=== PATIENT | female | born 1990 | race Caucasian/White ===

== ENCOUNTER 2016-08-10 06:34 | Day surgery (SDC) | payer BC, OTHER ==
[2016-08-10] MEDS ORDERED: Lactated Ringers 1,000 ML IV SCH (06:45)
--- NOTE | 2016-08-10 07:09 | PCM.PREANE ---
Preanesthetic Assessment - Anesthesia/Transfusion/Family Hx Anesthesia History: No Prior Anesthesia Family History of Anesthesia Reaction: No Transfusion History: No Prior Transfusion(s) Intubation History: Unknown - Review of Systems General: No Symptoms Pulmonary: No Symptoms Cardiovascular: No Symptoms Gastrointestinal: No symptoms Neurological: No Symptoms Other: Reports: None - Physical Assessment O2 Sat by Pulse Oximetry: 99 Respiratory Rate: 16 Vital Signs: Last Vital Signs Temp 36.7 C 08/10/16 06:56 Pulse 74 08/10/16 06:56 Resp 16 08/10/16 06:56 BP 110/73 08/10/16 06:56 Pulse Ox 99 08/10/16 06:56 Height: 1.64 m Weight: 63.503 kg ASA Class: 2 Mental Status: Alert & Oriented x3 Airway Class: Mallampati = 2 Dentition: Reports: Normal Dentition Thyro-Mental Finger Breadths: 3 Mouth Opening Finger Breadths: 3 ROM/Head Extension: Full Lungs: Clear to auscultation, Normal respiratory effort Cardiovascular: Regular Rate, Regular Rhythm - Allergies Allergies/Adverse Reactions: Allergies Allergy/AdvReac Type Severity Reaction Status Date / Time No Known Allergies Allergy Verified 03/25/16 10:28 - Blood Blood Available: No - Anesthesia Plan Pre-Op Medication Ordered: None - Acknowledgements Anesthesia Type Planned: General Anesthesia Pt an Appropriate Candidate for the Planned Anesthesia: Yes Alternatives and Risks of Anesthesia Discussed w Pt/Guardian: Yes Pt/Guardian Understands and Agrees with Anesthesia Plan: Yes PreAnesthesia Questionnaire HEENT History: Reports: Allergic rhinitis Cardiovascular History: Reports: None Respiratory History: Reports: None Gastrointestinal History: Reports: Other (see below) (History of Ulcerative Colitis-no episodes for "14 years") Genitourinary History: Reports: Other (see below) Other Genitourinary History: hx colitis [facility] History: Reports: (9 week intrauterine demise) Musculoskeletal History: Reports: None Neurological History: Reports: Other (see below) (complains of a headache today. ) Psychiatric History: Reports: Depression (The patient is upset and crying during the preoperative evaluation.) Endocrine/Metabolic History: Reports: None Hematologic History: Reports: None - Past Surgical History Head Surgeries/Procedures: Reports: None HEENT Surgical History: Reports: Oral surgery ("asleep for her dental extractions") Female Surgical History: Reports: D&C - History Comment History Comment: denies etoh - SUBSTANCE USE Smoking Status *Q: Never Smoker Recreational Drug Use History: No - HOME MEDS Home Medications: Home Meds Escitalopram [Lexapro] 10 mg PO DAILY 03/25/16 [History] PNV95/Ferrous Fumarate/FA [ Vitamins Tablet] 1 tab PO DAILY 03/25/16 [ History] - CURRENT (IN HOUSE) MEDS Current Meds: Current Medications Lactated Ringer's (Ringers, Lactated) 1,000 mls @ 125 mls/hr IV ASDIRECTED [facility] Last Admin: 08/10/16 07:02 Dose: 125 mls/hr
[2016-08-10] MEDS ORDERED: Propofol 200 MG/20 ML SDV ONE (07:41)
[2016-08-10] MEDS ORDERED: Lidocaine 2% 5 ML SDV ONE (07:41)
[2016-08-10] MEDS ORDERED: fentaNYL 100 MCG/2 ML SDV ONE (07:41)
[2016-08-10] MEDS ORDERED: Midazolam 1 MG/ML 2 ML SDV ONE (07:41)
[2016-08-10] MEDS ORDERED: Ondansetron 4 MG/2 ML SDV ONE (08:17)
[2016-08-10] MEDS ORDERED: Ketorolac 30 MG/ML SDV ONE (08:17)
--- NOTE | 2016-08-10 08:32 | PCM.OPNOTE ---
- General Post-Op/Procedure Note Date of Surgery/Procedure: 08/10/16 Operative Procedure(s): Suction D&C Pre Op Diagnosis: Missed Post-Op Diagnosis: Same Anesthesia Technique: General LMA Primary Surgeon: Dominique Gray Pathology: POC with karyotyping requested Fluid Replacement, Intraop: 800 EBL in mLs: 200 Condition: Good Free Text/Narrative:: Dictation [id number]
[2016-08-10] MEDS ORDERED: fentaNYL 100 MCG/2 ML SDV IVPUSH PRN (08:38)
[2016-08-10 10:55] VITALS: BP 90/60
--- NOTE | 2016-08-10 16:38 | OR ---
SURGEON: Dominique Gray M.D. DATE OF PROCEDURE: 08/10/2016 PREOPERATIVE DIAGNOSIS: Missed . POSTOPERATIVE DIAGNOSIS: Missed . PROCEDURE: Suction dilation and curettage. ESTIMATED BLOOD LOSS: 200 mL. FLUIDS: 800 mL of crystalloid. COMPLICATIONS: None. FINDINGS: Products of conception. DISPOSITION: The patient to PACU, stable. SPECIMENS: Pathology. PROCEDURE IN DETAIL: Kaylah is a 26-year-old G2, P 0-0-1-0, who was seen last week for her new OB evaluation and ultrasound revealed an approximately five-to six-week gestational sac with no embryo formation, yolk sac was noted; therefore she was followed closely with serial quantitative hCGs, which are falling. This is consistent with an early missed . Options have been discussed with Kaylah and she would like to proceed with a suction D and C. After risks of the procedure have been discussed and proper consent obtained, the patient was taken to the operating room. She underwent general LMA, was placed in modified dorsal lithotomy position, prepped and draped in the usual sterile fashion. SCDs lower extremities. Bladder was drained. A time-out was performed. Speculum was introduced into the vagina. Anterior lip of cervix was grasped with an Allis clamp. Cervix was gently dilated to 8 mm using an 8 mm curved curette. This was introduced in the uterine cavity. Under suction of the uterine cavity, it was cleared of all products of conception and palpated. Gentle curettage was now performed. The suction curette was once again introduced and remainder of tissue was now retrieved. Hemostasis appears evident. All instruments were removed from the vagina. The patient had tolerated the procedure well. Specimen forwarded to pathology. The patient is requesting the karyotyping of the tissue if able. Pathology has been notified. The patient to PACU in stable condition. LEONARD / MAYELA /[id number]
== END 2016-08-10 10:35 | disposition home or self-care (01) ==
LOC: MW.SDS 06:34
PROVIDERS: ATTEND Obstetrics & Gynecology
DX: O02.1 Missed abortion (principal); K51.90 Ulcerative colitis, unspecified, without complications; F32.9 Major depressive disorder, single episode, unspecified; Z98.890 Other specified postprocedural states; Z79.899 Other long term (current) drug therapy
CPT/HCPCS: 36415; 59820; 85027; 88233; J1885; J2250; J2405; J3010; J7120; 01965; 88305; J2704

== ENCOUNTER 2017-09-12 17:46 | Inpatient (IN) | payer BC, OTHER ==
[2017-09-12] MEDS ORDERED: Carboprost Tromethamine 250 MCG/1 ML Amp IM PRN (17:58)
[2017-09-12] MEDS ORDERED: Water For Irrigation,Sterile 1,000 ML Container IRR PRN (17:58)
[2017-09-12] MEDS ORDERED: Tranexamic Acid 1,000 MG in Sodium Chloride 0.9% 100 ML IV PRN (17:58)
[2017-09-12] MEDS ORDERED: Misoprostol 200 MCG Tab PO PRN (17:58)
[2017-09-12] MEDS ORDERED: Lidocaine 1% 50 ML MDV INJECT PRN (17:58)
[2017-09-12] MEDS ORDERED: Sodium Chloride 0.9% 10 ML Syringe FLUSH PRN (17:58)
[2017-09-12] MEDS ORDERED: Nalbuphine 10 MG/1 ML Vial IVPUSH PRN (17:58)
[2017-09-12] MEDS ORDERED: Butorphanol 1 MG/ML SDV IVPUSH PRN (17:58)
[2017-09-12] MEDS ORDERED: Sodium Chloride 0.9% 2.5 ML Syringe FLUSH PRN (17:58)
[2017-09-12] MEDS ORDERED: Methylergonovine 0.2 MG/1 ML Amp IM PRN (17:58)
[2017-09-12] MEDS ORDERED: Terbutaline 1 MG/ML SDV SUBCUT PRN (17:59)
[2017-09-12] MEDS ORDERED: Misoprostol 25 MCG (1/4 of 100 MCG) Tab VAG PRN (17:59)
[2017-09-12] MEDS ORDERED: Oxytocin/0.9 % Sodium Chloride 30 UNIT/500 ML BAG IV SCH (18:00)
[2017-09-12] MEDS ORDERED: Misoprostol 25 MCG (1/4 of 100 MCG) Tab VAG SCH (18:00)
[2017-09-12] MEDS ORDERED: Ampicillin 2 GM in Sodium Chloride 0.9% 100 ML IV ONE (18:26)
[2017-09-12] MEDS: Lactated Ringers 1,000 ML IV SCH (19:39)
[2017-09-12] MEDS ORDERED: Ampicillin 1 GM in Sodium Chloride 0.9% 50 ML IV SCH (20:45)
[2017-09-12] MEDS: Ampicillin 1 GM in Sodium Chloride 0.9% 50 ML IV SCH (23:37)
[2017-09-13] MEDS ORDERED: diphenhydrAMINE 25 MG Cap PO ONE (00:12)
[2017-09-13] MEDS ORDERED: Ondansetron 4 MG/2 ML SDV IVPUSH ONE (03:07)
[2017-09-13] MEDS: Butorphanol 1 MG/ML SDV IVPUSH PRN ×2 (03:14→07:00)
[2017-09-13] MEDS: Ampicillin 1 GM in Sodium Chloride 0.9% 50 ML IV SCH ×6 (03:44→23:35)
[2017-09-13] MEDS: Dextrose 5%-0.9% NaCl 1,000 ML IV SCH ×3 (04:20→23:52)
[2017-09-13] MEDS: Lactated Ringers 1,000 ML IV SCH ×3 (08:55→18:25)
[2017-09-13] MEDS ORDERED: Ropivacaine 0.2% 2 MG/ML 20 ML SDV ONE (09:11)
--- NOTE | 2017-09-13 09:45 | PCM.PREANE ---
Preanesthetic Assessment - Procedure Proposed Procedure: labor epidural- has gestational DM - Anesthesia/Transfusion/Family Hx Anesthesia History: Prior Anesthesia Without Reaction Family History of Anesthesia Reaction: No Transfusion History: No Prior Transfusion(s) Intubation History: Unknown - Review of Systems Other: Reports: None - Physical Assessment Height: 5 ft 4 in Weight: 78.018 kg ASA Class: 2 Mental Status: Alert & Oriented x3 Airway Class: Mallampati = 1 Dentition: Reports: Normal Dentition ROM/Head Extension: Full - Lab Values: Laboratory Last Values WBC 9.51 K/uL (4.0-11.0) 09/12/17 18:17 RBC 4.56 M/uL (4.30-5.90) 09/12/17 18:17 Hgb 13.4 g/dL (12.0-16.0) 09/12/17 18:17 Hct 38.8 % (36.0-46.0) 09/12/17 18:17 MCV 85.1 fL (80.0-98.0) 09/12/17 18:17 MCH 29.4 pg (27.0-32.0) 09/12/17 18:17 MCHC 34.5 g/dL (31.0-37.0) 09/12/17 18:17 RDW Std Deviation 44.7 fl (28.0-62.0) 09/12/17 18:17 RDW Coeff of Ethel 15 % (11.0-15.0) 09/12/17 18:17 Plt Count 146 K/uL (150-400) L 09/12/17 18:17 MPV 10.40 fL (7.40-12.00) 09/12/17 18:17 Nucleated RBC % 0.0 /100WBC 09/12/17 18:17 Nucleated RBCs # 0 K/uL 09/12/17 18:17 POC Glucose 70 mg/dL (60-110) 09/13/17 09:34 Blood Type O POSITIVE 09/12/17 18:17 Antibody Screen NEGATIVE 09/12/17 18:17 - Allergies Allergies/Adverse Reactions: Allergies Allergy/AdvReac Type Severity Reaction Status Date / Time No Known Allergies Allergy Verified 03/25/16 10:28 - Blood Blood Available: Yes Product(s) Available: PRBC - Acknowledgements Anesthesia Type Planned: Epidural Pt an Appropriate Candidate for the Planned Anesthesia: Yes Alternatives and Risks of Anesthesia Discussed w Pt/Guardian: Yes Pt/Guardian Understands and Agrees with Anesthesia Plan: Yes PreAnesthesia Questionnaire HEENT History: Reports: Allergic Rhinitis Cardiovascular History: Reports: None Respiratory History: Reports: None Gastrointestinal History: Reports: Other (See Below) Other Gastrointestinal History: heartburn with and ulcerative colitis Genitourinary History: Reports: None Other Genitourinary History: hx colitis NURSES EDUCATOR History: Reports: , Spontaneous Musculoskeletal History: Reports: None Neurological History: Reports: None Psychiatric History: Reports: Anxiety Endocrine/Metabolic History: Reports: Diabetes, Gestational Hematologic History: Reports: None Oncologic (Cancer) History: Reports: None Dermatologic History: Reports: None - Infectious Disease History Infectious Disease History: Reports: Chicken Pox, Influenza - Past Surgical History Head Surgeries/Procedures: Reports: None HEENT Surgical History: Reports: Oral Surgery, Other (See Below) Other HEENT Surgeries/Procedures: wisdom teeth extraction GI Surgical History: Reports: None Female Surgical History: Reports: D&C - History Comment History Comment: denies etoh - SUBSTANCE USE Smoking Status *Q: Never Smoker Second Hand Smoke Exposure: No Recreational Drug Use History: No - HOME MEDS Home Medications: Home Meds Escitalopram [Lexapro] 10 mg PO DAILY 03/25/16 [History] PNV95/Ferrous Fumarate/FA [ Vitamins Tablet] 1 tab PO DAILY 03/25/16 [ History] - CURRENT (IN HOUSE) MEDS Current Meds: Current Medications Butorphanol Tartrate (Stadol) 1 mg IVPUSH Q1H PRN PRN Reason: Abdominal Pain Last Admin: 09/13/17 07:00 Dose: 1 mg Carboprost Tromethamine (Hemabate Ds) 250 mcg IM ASDIRECTED PRN PRN Reason: Post Hemorrhage Lactated Ringer's (Ringers, Lactated) 1,000 mls @ 150 mls/hr IV ASDIRECTED [facility] Last Admin: 09/13/17 08:55 Dose: 999 mls/hr Tranexamic Acid 1,000 mg/ (Sodium Chloride) 110 mls @ 660 mls/hr IV ONETIME PRN PRN Reason: Bleeding Oxytocin/Sodium Chloride (Oxytocin 30 Unit/500 Ml-Ns) 30 unit in 500 mls @ 2 mls/hr IV TITRATE MILIND; Protocol Last Admin: 09/13/17 09:40 Dose: 2 munits/min, 2 mls/hr Ampicillin Sodium 1 gm/ Sodium (Chloride) 50 mls @ 100 mls/hr IV Q4H [facility] Last Admin: 09/13/17 07:10 Dose: 100 mls/hr Insulin Human Regular 100 unit (/ Sodium Chloride) 100 mls @ 0.5 mls/hr IV TITRATE MILIND; Protocol Dextrose/Sodium Chloride (Dextrose 5%-Normal Saline) 1,000 mls @ 100 mls/hr IV ASDIRECTED [facility] Last Admin: 09/13/17 04:20 Dose: 100 mls/hr Lidocaine HCl (Xylocaine 1%) 50 ml INJECT .ONCE PRN PRN Reason: Laceration repair Methylergonovine Maleate (Methergine) 0.2 mg IM ASDIRECTED PRN PRN Reason: Post Hemorrhage Misoprostol (Cytotec) 200 mcg PO .ONCE PRN PRN Reason: Post Hemorrhage Misoprostol (Cytotec) 25 mcg VAG .ONCE [facility] Last Admin: 09/12/17 18:31 Dose: 25 mcg Misoprostol (Cytotec) 25 mcg VAG Q4H PRN PRN Reason: Cervical Ripening Last Admin: 09/12/17 22:43 Dose: 25 mcg Sodium Chloride (Saline Flush) 10 ml FLUSH ASDIRECTED PRN PRN Reason: Keep Vein Open Sodium Chloride (Saline Flush) 2.5 ml FLUSH ASDIRECTED PRN PRN Reason: Keep Vein Open Sterile Water (Sterile Water For Irrigation) 1,000 ml IRR ASDIRECTED PRN PRN Reason: delivery Terbutaline Sulfate (Brethine) 0.25 mg SUBCUT ASDIRECTED PRN PRN Reason: Tacysystole Discontinued Medications Diphenhydramine HCl (Benadryl) 25 mg PO ONETIME ONE Stop: 09/13/17 00:13 Last Admin: 09/13/17 01:52 Dose: 25 mg Ampicillin Sodium 2 gm/ Sodium (Chloride) 100 mls @ 200 mls/hr IV ONETIME ONE Stop: 09/12/17 18:55 Last Admin: 09/12/17 19:40 Dose: 200 mls/hr Fentanyl/Bupivacaine HCl (Xalorelw-Tayce-Vl 2 Mcg/Ml-0.125%) Confirm Administered Dose 100 mls @ as directed EP .STK-MED ONE Stop: 09/13/17 09:12 Ondansetron HCl (Zofran) 4 mg IVPUSH ONETIME ONE Stop: 09/13/17 03:08 Last Admin: 09/13/17 03:38 Dose: 4 mg Ropivacaine (Naropin 0.2%) Confirm Administered Dose 20 ml .ROUTE .STK-MED ONE Stop: 09/13/17 09:12
[2017-09-13] MEDS ORDERED: Ondansetron 4 MG/2 ML SDV IVPUSH PRN (10:49)
[2017-09-13] MEDS ORDERED: Ropivacaine HCl/PF 100 ML ONE (18:21)
[2017-09-13] MEDS ORDERED: Acetaminophen 500 MG Tab PO ONE (22:32)
[2017-09-14] MEDS ORDERED: Bupivacaine 0.5% 10 ML SDV ONE ×2 (03:05→05:33)
[2017-09-14] MEDS ORDERED: Ropivacaine HCl/PF 100 ML ONE (03:05)
[2017-09-14] MEDS: Ampicillin 1 GM in Sodium Chloride 0.9% 50 ML IV SCH (03:35)
[2017-09-14] MEDS ORDERED: Citric Acid/Sodium Citrate Solution 30 ML Cup PO ONE (05:24)
[2017-09-14] MEDS ORDERED: ceFAZolin 2 GM in Premix Bag 1 BAG IV ONE (05:45)
[2017-09-14] MEDS ORDERED: ceFAZolin/Dextrose,Iso-Osmotic 2 GM/50 ML Duplex Bag IV ONE (05:52)
[2017-09-14] MEDS ORDERED: Morphine PF 1 MG/ML Amp ONE (05:53)
[2017-09-14] MEDS ORDERED: Ondansetron 4 MG/2 ML SDV ONE (05:53)
[2017-09-14] MEDS ORDERED: Propofol 200 MG/20 ML SDV ONE (05:53)
[2017-09-14] MEDS ORDERED: Oxytocin 10 Units/1 ML SDV ONE ×3 (05:53→05:55)
[2017-09-14] MEDS ORDERED: Methylergonovine 0.2 MG/1 ML Amp ONE (06:12)
[2017-09-14] MEDS ORDERED: Midazolam 1 MG/ML 2 ML SDV ONE (06:28)
[2017-09-14] MEDS ORDERED: Phenylephrine 1% 10 MG/ML SDV ONE (06:31)
[2017-09-14] MEDS ORDERED: Phenylephrine/Normal Saline 100 MCG/ML 10 ML Syringe ONE (06:32)
[2017-09-14] MEDS ORDERED: Acetaminophen/oxyCODONE 325-5 MG Tab PO PRN ×2 (06:37→06:52)
[2017-09-14] MEDS ORDERED: Aluminum Hydroxide/Magnesium Hydroxide/Simethicone Susp 30 ML Cup PO PRN (06:37)
[2017-09-14] MEDS ORDERED: Lanolin 100% Cream 7 GM Tube TOP PRN (06:37)
[2017-09-14] MEDS ORDERED: Simethicone 80 MG Tab.Chew PO PRN (06:37)
[2017-09-14] MEDS ORDERED: Ondansetron 4 MG/2 ML SDV IV PRN (06:37)
[2017-09-14] MEDS ORDERED: diphenhydrAMINE 50 MG/ML SDV IVPUSH PRN ×2 (06:37→06:50)
[2017-09-14] MEDS ORDERED: Bisacodyl 10 MG Supp RECTAL PRN (06:37)
[2017-09-14] MEDS ORDERED: Lactated Ringers 1,000 ML IV SCH (06:45)
--- NOTE | 2017-09-14 06:47 | PCM.OPNOTE ---
- General Post-Op/Procedure Note Date of Surgery/Procedure: 09/14/17 Operative Procedure(s): Primary LTCS Findings: Term male 8, 9 weight 3640 gm. Delivery placenta manually--retained portion was carefully extracted. sent to pathology Pre Op Diagnosis: 39/4 week IUP. Arrest of descent. Gestational diabetes, insulin controlled Post-Op Diagnosis: Same Anesthesia Technique: Epidural Primary Surgeon: Dominique Gray Fluid Replacement, Intraop: 600 (in OR) EBL in mLs: 800 Complications: none known Condition: Good Free Text/Narrative:: [id number] Intake & Output 09/13/17 09/13/17 09/14/17 14:59 22:59 06:59 Output Total 1180 Balance -1180
[2017-09-14] MEDS ORDERED: Nalbuphine 10 MG/1 ML Vial IVPUSH PRN (06:50)
[2017-09-14] MEDS ORDERED: Naloxone 0.4 MG/ML Syringe IVPUSH PRN (06:50)
[2017-09-14] MEDS ORDERED: fentaNYL 100 MCG/2 ML SDV IVPUSH PRN (06:52)
[2017-09-14] MEDS ORDERED: Nalbuphine 10 MG/ML 10 ML MDV IVPUSH PRN (06:58)
[2017-09-14] MEDS: Ketorolac 30 MG/ML SDV IVPUSH SCH ×3 (07:12→19:37)
--- NOTE | 2017-09-14 07:27 | PCM48HPAN ---
Post Anesthesia Note - EVALUATION WITHIN 48HRS OF ANESTHETIC Vital Signs in Normal Range: Yes Patient Participated in Evaluation: Yes Respiratory Function Stable: Yes Airway Patent: Yes Cardiovascular Function Stable: Yes Hydration Status Stable: Yes Pain Control Satisfactory: Yes Nausea and Vomiting Control Satisfactory: Yes Mental Status Recovered: Yes Resp Rate: 12 Temperature: 37.7 C
[2017-09-14] MEDS: Escitalopram 10 MG Tab PO SCH (15:30)
[2017-09-14] MEDS: Acetaminophen/oxyCODONE 325-5 MG Tab PO PRN (18:13)
[2017-09-14] MEDS: Docusate Sodium 100 MG Cap PO SCH ×2 (21:37)
[2017-09-15] MEDS: Ketorolac 30 MG/ML SDV IVPUSH SCH ×2 (01:06→06:50)
--- NOTE | 2017-09-15 08:10 | PCM.PNPP ---
<HeatherLamar - Last Filed: 09/15/17 08:07> - General Info Date of Service: 09/15/17 - Review of Systems General: Denies: Fever, Weakness, Fatigue Pulmonary: Denies: Shortness of Breath, Pleuritic Chest Pain, Cough Cardiovascular: Denies: Chest Pain, Palpitations, Dyspnea on Exertion Gastrointestinal: Denies: Abdominal Pain Genitourinary: Denies: Dysuria - General Info Date of Service: 09/15/17 - Patient Data Vital Signs - Most Recent: Last Vital Signs Temp 36.2 C 09/15/17 04:00 Pulse 88 09/15/17 06:00 Resp 15 09/15/17 06:00 BP 113/84 09/15/17 04:00 Pulse Ox 92 L 09/15/17 06:00 Weight - Most Recent: 78.018 kg I&O - Last 24 Hours: Intake & Output 09/14/17 09/15/17 09/15/17 22:59 06:59 14:59 Output Total 1500 Balance -1500 Lab Results - Last 24 Hours: Laboratory Results - last 24 hr 09/15/17 Range/Units 05:25 Hgb 10.6 L (12.0-16.0) g/dL Hct 31.2 L (36.0-46.0) % Med Orders - Current: Current Medications Al Hydroxide/Mg Hydroxide (Mag-Al Plus) 30 ml PO Q8H PRN PRN Reason: Heartburn Bisacodyl (Dulcolax) 10 mg RECTAL .ONCE PRN PRN Reason: Constipation Carboprost Tromethamine (Hemabate Ds) 250 mcg IM ASDIRECTED PRN PRN Reason: Post Hemorrhage Diphenhydramine HCl (Benadryl) 25 mg IVPUSH Q6H PRN PRN Reason: Itching or Nausea Docusate Sodium (Colace) 100 mg PO BID [facility] Last Admin: 09/14/17 21:37 Dose: 100 mg Emollient Ointment (Lansinoh Hpa) 0 gm TOP ASDIRECTED PRN PRN Reason: Sore Nipples Escitalopram Oxalate (Lexapro) 10 mg PO DAILY [facility] Last Admin: 09/14/17 15:30 Dose: 10 mg Fentanyl (Sublimaze) 25 - 50 mcg IVPUSH Q30M PRN PRN Reason: Pain Tranexamic Acid 1,000 mg/ (Sodium Chloride) 110 mls @ 660 mls/hr IV ONETIME PRN PRN Reason: Bleeding Oxytocin/Sodium Chloride (Oxytocin 30 Unit/500 Ml-Ns) 30 unit in 500 mls @ 2 mls/hr IV TITRATE [facility]; Protocol Last Titration: 09/14/17 02:38 Dose: 10 munits/min, 10 mls/hr Lactated Ringer's (Ringers, Lactated) 1,000 mls @ 125 mls/hr IV ASDIRECTED [facility] Last Admin: 09/14/17 09:22 Dose: 125 mls/hr Ibuprofen (Motrin) 800 mg PO Q8H PRN PRN Reason: mild pain or fever Methylergonovine Maleate (Methergine) 0.2 mg IM ASDIRECTED PRN PRN Reason: Post Hemorrhage Misoprostol (Cytotec) 200 mcg PO .ONCE PRN PRN Reason: Post Hemorrhage Nalbuphine HCl (Nubain) 5 mg IVPUSH Q3H PRN PRN Reason: Pruritis Ondansetron HCl (Zofran) 4 mg IVPUSH Q4H PRN PRN Reason: Nausea/Vomiting Oxycodone/Acetaminophen (Percocet 325-5 Mg) 1 tab PO Q4H PRN PRN Reason: Pain (moderate 4-6) Last Admin: 09/14/17 18:13 Dose: 1 tab Oxycodone/Acetaminophen (Percocet 325-5 Mg) 2 tab PO Q4H PRN PRN Reason: Pain (moderate 4-6) Oxycodone/Acetaminophen (Percocet 325-5 Mg) 1 - 2 tab PO Q6H PRN PRN Reason: Pain Stop: 09/16/17 14:00 Simethicone (Simethicone) 80 mg PO Q4H PRN PRN Reason: Gas Sodium Chloride (Saline Flush) 10 ml FLUSH ASDIRECTED PRN PRN Reason: Keep Vein Open Sodium Chloride (Saline Flush) 2.5 ml FLUSH ASDIRECTED PRN PRN Reason: Keep Vein Open Discontinued Medications Acetaminophen (Tylenol Extra Strength) 1,000 mg PO ONETIME ONE Stop: 09/13/17 22:33 Last Admin: 09/13/17 22:55 Dose: 1,000 mg Bupivacaine HCl (Sensorcaine-Mpf 0.5%) Confirm Administered Dose 10 ml .ROUTE .STK-MED ONE Stop: 09/14/17 03:06 Last Admin: 09/14/17 20:20 Dose: Not Given Bupivacaine HCl (Sensorcaine-Mpf 0.5%) Confirm Administered Dose 20 ml .ROUTE .STK-MED ONE Stop: 09/14/17 05:34 Last Admin: 09/14/17 20:20 Dose: Not Given Butorphanol Tartrate (Stadol) 1 mg IVPUSH Q1H PRN PRN Reason: Abdominal Pain Last Admin: 09/13/17 07:00 Dose: 1 mg Cefazolin Sodium/Dextrose (Ancef) Confirm Administered Dose 2 gm IV .STK-MED ONE Stop: 09/14/17 05:53 Citric Acid/Sodium Citrate (Bicitra Solution) 30 ml PO ONETIME ONE Stop: 09/14/17 05:25 Last Admin: 09/14/17 20:20 Dose: Not Given Diphenhydramine HCl (Benadryl) 25 mg PO ONETIME ONE Stop: 09/13/17 00:13 Last Admin: 09/13/17 01:52 Dose: 25 mg Diphenhydramine HCl (Benadryl) 25 mg IVPUSH Q4H PRN PRN Reason: Itching Stop: 09/15/17 06:51 Lactated Ringer's (Ringers, Lactated) 1,000 mls @ 150 mls/hr IV ASDIRECTED [facility] Last Admin: 09/13/17 18:25 Dose: 150 mls/hr Ampicillin Sodium 2 gm/ Sodium (Chloride) 100 mls @ 200 mls/hr IV ONETIME ONE Stop: 09/12/17 18:55 Last Admin: 09/12/17 19:40 Dose: 200 mls/hr Ampicillin Sodium 1 gm/ Sodium (Chloride) 50 mls @ 100 mls/hr IV Q4H [facility] Last Admin: 09/14/17 03:35 Dose: 100 mls/hr Insulin Human Regular 100 unit (/ Sodium Chloride) 100 mls @ 0.5 mls/hr IV TITRATE [facility]; Protocol Last Titration: 09/14/17 04:46 Dose: 1 unit/hr, 1 mls/hr Dextrose/Sodium Chloride (Dextrose 5%-Normal Saline) 1,000 mls @ 100 mls/hr IV ASDIRECTED [facility] Last Admin: 09/13/17 23:52 Dose: 100 mls/hr Fentanyl/Bupivacaine HCl (Jcbvlegg-Wuacc-Mi 2 Mcg/Ml-0.125%) Confirm Administered Dose 100 mls @ as directed EP .STK-MED ONE Stop: 09/13/17 09:12 Last Admin: 09/14/17 20:20 Dose: Not Given Ropivacaine (Naropin 0.2%) Confirm Administered Dose 100 mls @ as directed .ROUTE .STK-MED ONE Stop: 09/13/17 18:22 Last Admin: 09/14/17 20:20 Dose: Not Given Ropivacaine (Naropin 0.2%) Confirm Administered Dose 100 mls @ as directed .ROUTE .STK-MED ONE Stop: 09/14/17 03:06 Last Admin: 09/14/17 20:20 Dose: Not Given Cefazolin Sodium 2,000 mg/ (Sodium Chloride) 100 mls @ 100 mls/hr IV ONETIME ONE Stop: 09/14/17 06:24 Cefazolin Sodium/Dextrose 2 gm (/ Premix) 50 mls @ 200 mls/hr IV ONETIME ONE Stop: 09/14/17 05:59 Last Admin: 09/14/17 20:20 Dose: Not Given Acetaminophen (Ofirmev) Confirm Administered Dose 100 mls @ as directed IV .STK- MED ONE Stop: 09/14/17 06:24 Ketorolac Tromethamine (Toradol) 30 mg IVPUSH Q6H [facility] Stop: 09/15/17 07:11 Last Admin: 09/15/17 06:50 Dose: 30 mg Lidocaine HCl (Xylocaine 1%) 50 ml INJECT .ONCE PRN PRN Reason: Laceration repair Methylergonovine Maleate (Methergine) Confirm Administered Dose 0.2 mg .ROUTE .STK-MED ONE Stop: 09/14/17 06:13 Midazolam HCl (Versed 1 Mg/Ml) Confirm Administered Dose 2 mg .ROUTE .STK-MED ONE Stop: 09/14/17 06:29 Misoprostol (Cytotec) 25 mcg VAG .ONCE [facility] Last Admin: 09/12/17 18:31 Dose: 25 mcg Misoprostol (Cytotec) 25 mcg VAG Q4H PRN PRN Reason: Cervical Ripening Last Admin: 09/12/17 22:43 Dose: 25 mcg Morphine Sulfate (Duramorph Pf) Confirm Administered Dose 1 mg .ROUTE .STK-MED ONE Stop: 09/14/17 05:54 Naloxone HCl (Narcan) 0.1 mg IVPUSH ONETIME PRN PRN Reason: Other Stop: 09/15/17 06:51 Ondansetron HCl (Zofran) 4 mg IVPUSH ONETIME ONE Stop: 09/13/17 03:08 Last Admin: 09/13/17 03:38 Dose: 4 mg Ondansetron HCl (Zofran) Confirm Administered Dose 4 mg .ROUTE .STK-MED ONE Stop: 09/14/17 05:54 Ondansetron HCl (Zofran) 4 mg IV Q4H PRN PRN Reason: Nausea/Vomiting Oxytocin (Pitocin) Confirm Administered Dose 10 unit .ROUTE .STK-MED ONE Stop: 09/14/17 05:54 Oxytocin (Pitocin) Confirm Administered Dose 10 unit .ROUTE .STK-MED ONE Stop: 09/14/17 05:55 Oxytocin (Pitocin) Confirm Administered Dose 10 unit .ROUTE .STK-MED ONE Stop: 09/14/17 05:56 Phenylephrine HCl (Uvaldo-Synephrine) Confirm Administered Dose 10 mg .ROUTE .STK- MED ONE Stop: 09/14/17 06:32 Phenylephrine HCl (Phenylephrine In Ns 100 Mcg/Ml) Confirm Administered Dose 1 mg .ROUTE .STK-MED ONE Stop: 09/14/17 06:33 Propofol (Diprivan 20 Ml) Confirm Administered Dose 200 mg .ROUTE .STK-MED ONE Stop: 09/14/17 05:54 Ropivacaine (Naropin 0.2%) Confirm Administered Dose 20 ml .ROUTE .STK-MED ONE Stop: 09/13/17 09:12 Last Admin: 09/14/17 20:20 Dose: Not Given Sterile Water (Sterile Water For Irrigation) 1,000 ml IRR ASDIRECTED PRN PRN Reason: delivery Terbutaline Sulfate (Brethine) 0.25 mg SUBCUT ASDIRECTED PRN PRN Reason: Tacysystole - Infant Interaction Infant Disposition, : [place] to Nursery Infant Feeding: Bottle Fed Support Person: - Recovery Exam Fundal Tone: Firm Fundal Level: 1 Fingerbreadths Below Umbilicus Fundal Placement: Midline Lochia Amount: Scant Lochia Color: Rubra/Red Perineum Description: Intact, Minimal Bruising/Swelling Urinary Elimination: Other (see below) (catheter has been removed, patient has not voided) - Exam General: Alert, Oriented Neck: Supple Lungs: Clear to Auscultation, Normal Respiratory Effort GI/Abdominal Exam: Normal Bowel Sounds, Non-Tender, No Distention Extremities: Normal Inspection, Normal Capillary Refill, Pedal Edema (2+) - Problem List Review Problem List Initiated/Reviewed/Updated: Yes - Assessment Assessment:: POD#1 s/p PLTCS. Minimal pain and lochia. Planning on bottle feeding. Encouraged patient to ambulate halls and shower today. - Plan Plan:: Continue routine post-op cares. <Dominique Gray - Last Filed: 09/15/17 09:01> - Patient Data Vital Signs - Most Recent: Last Vital Signs Temp 36.4 C 09/15/17 08:54 Pulse 83 09/15/17 08:54 Resp 12 09/15/17 08:54 BP 125/68 09/15/17 08:54 Pulse Ox 98 09/15/17 08:54 I&O - Last 24 Hours: Intake & Output 09/14/17 09/15/17 09/15/17 22:59 06:59 14:59 Output Total 1500 Balance -1500 Lab Results - Last 24 Hours: Laboratory Results - last 24 hr 09/15/17 Range/Units 05:25 Hgb 10.6 L (12.0-16.0) g/dL Hct 31.2 L (36.0-46.0) % Med Orders - Current: Current Medications Al Hydroxide/Mg Hydroxide (Mag-Al Plus) 30 ml PO Q8H PRN PRN Reason: Heartburn Bisacodyl (Dulcolax) 10 mg RECTAL .ONCE PRN PRN Reason: Constipation Carboprost Tromethamine (Hemabate Ds) 250 mcg IM ASDIRECTED PRN PRN Reason: Post Hemorrhage Diphenhydramine HCl (Benadryl) 25 mg IVPUSH Q6H PRN PRN Reason: Itching or Nausea Docusate Sodium (Colace) 100 mg PO BID [facility] Last Admin: 09/14/17 21:37 Dose: 100 mg Emollient Ointment (Lansinoh Hpa) 0 gm TOP ASDIRECTED PRN PRN Reason: Sore Nipples Escitalopram Oxalate (Lexapro) 10 mg PO DAILY [facility] Last Admin: 09/14/17 15:30 Dose: 10 mg Fentanyl (Sublimaze) 25 - 50 mcg IVPUSH Q30M PRN PRN Reason: Pain Tranexamic Acid 1,000 mg/ (Sodium Chloride) 110 mls @ 660 mls/hr IV ONETIME PRN PRN Reason: Bleeding Oxytocin/Sodium Chloride (Oxytocin 30 Unit/500 Ml-Ns) 30 unit in 500 mls @ 2 mls/hr IV TITRATE [facility]; Protocol Last Titration: 09/14/17 02:38 Dose: 10 munits/min, 10 mls/hr Lactated Ringer's (Ringers, Lactated) 1,000 mls @ 125 mls/hr IV ASDIRECTED [facility] Last Admin: 09/14/17 09:22 Dose: 125 mls/hr Ibuprofen (Motrin) 800 mg PO Q8H PRN PRN Reason: mild pain or fever Methylergonovine Maleate (Methergine) 0.2 mg IM ASDIRECTED PRN PRN Reason: Post Hemorrhage Misoprostol (Cytotec) 200 mcg PO .ONCE PRN PRN Reason: Post Hemorrhage Nalbuphine HCl (Nubain) 5 mg IVPUSH Q3H PRN PRN Reason: Pruritis Ondansetron HCl (Zofran) 4 mg IVPUSH Q4H PRN PRN Reason: Nausea/Vomiting Oxycodone/Acetaminophen (Percocet 325-5 Mg) 1 tab PO Q4H PRN PRN Reason: Pain (moderate 4-6) Last Admin: 09/14/17 18:13 Dose: 1 tab Oxycodone/Acetaminophen (Percocet 325-5 Mg) 2 tab PO Q4H PRN PRN Reason: Pain (moderate 4-6) Oxycodone/Acetaminophen (Percocet 325-5 Mg) 1 - 2 tab PO Q6H PRN PRN Reason: Pain Stop: 09/16/17 14:00 Simethicone (Simethicone) 80 mg PO Q4H PRN PRN Reason: Gas Sodium Chloride (Saline Flush) 10 ml FLUSH ASDIRECTED PRN PRN Reason: Keep Vein Open Sodium Chloride (Saline Flush) 2.5 ml FLUSH ASDIRECTED PRN PRN Reason: Keep Vein Open Discontinued Medications Acetaminophen (Tylenol Extra Strength) 1,000 mg PO ONETIME ONE Stop: 09/13/17 22:33 Last Admin: 09/13/17 22:55 Dose: 1,000 mg Bupivacaine HCl (Sensorcaine-Mpf 0.5%) Confirm Administered Dose 10 ml .ROUTE .STK-MED ONE Stop: 09/14/17 03:06 Last Admin: 09/14/17 20:20 Dose: Not Given Bupivacaine HCl (Sensorcaine-Mpf 0.5%) Confirm Administered Dose 20 ml .ROUTE .STK-MED ONE Stop: 09/14/17 05:34 Last Admin: 09/14/17 20:20 Dose: Not Given Butorphanol Tartrate (Stadol) 1 mg IVPUSH Q1H PRN PRN Reason: Abdominal Pain Last Admin: 09/13/17 07:00 Dose: 1 mg Cefazolin Sodium/Dextrose (Ancef) Confirm Administered Dose 2 gm IV .STK-MED ONE Stop: 09/14/17 05:53 Citric Acid/Sodium Citrate (Bicitra Solution) 30 ml PO ONETIME ONE Stop: 09/14/17 05:25 Last Admin: 09/14/17 20:20 Dose: Not Given Diphenhydramine HCl (Benadryl) 25 mg PO ONETIME ONE Stop: 09/13/17 00:13 Last Admin: 09/13/17 01:52 Dose: 25 mg Diphenhydramine HCl (Benadryl) 25 mg IVPUSH Q4H PRN PRN Reason: Itching Stop: 09/15/17 06:51 Lactated Ringer's (Ringers, Lactated) 1,000 mls @ 150 mls/hr IV ASDIRECTED [facility] Last Admin: 09/13/17 18:25 Dose: 150 mls/hr Ampicillin Sodium 2 gm/ Sodium (Chloride) 100 mls @ 200 mls/hr IV ONETIME ONE Stop: 09/12/17 18:55 Last Admin: 09/12/17 19:40 Dose: 200 mls/hr Ampicillin Sodium 1 gm/ Sodium (Chloride) 50 mls @ 100 mls/hr IV Q4H [facility] Last Admin: 09/14/17 03:35 Dose: 100 mls/hr Insulin Human Regular 100 unit (/ Sodium Chloride) 100 mls @ 0.5 mls/hr IV TITRATE [facility]; Protocol Last Titration: 09/14/17 04:46 Dose: 1 unit/hr, 1 mls/hr Dextrose/Sodium Chloride (Dextrose 5%-Normal Saline) 1,000 mls @ 100 mls/hr IV ASDIRECTED [facility] Last Admin: 09/13/17 23:52 Dose: 100 mls/hr Fentanyl/Bupivacaine HCl (Upynjbzx-Vdzyk-Pp 2 Mcg/Ml-0.125%) Confirm Administered Dose 100 mls @ as directed EP .STK-MED ONE Stop: 09/13/17 09:12 Last Admin: 09/14/17 20:20 Dose: Not Given Ropivacaine (Naropin 0.2%) Confirm Administered Dose 100 mls @ as directed .ROUTE .STK-MED ONE Stop: 09/13/17 18:22 Last Admin: 09/14/17 20:20 Dose: Not Given Ropivacaine (Naropin 0.2%) Confirm Administered Dose 100 mls @ as directed .ROUTE .STK-MED ONE Stop: 09/14/17 03:06 Last Admin: 09/14/17 20:20 Dose: Not Given Cefazolin Sodium 2,000 mg/ (Sodium Chloride) 100 mls @ 100 mls/hr IV ONETIME ONE Stop: 09/14/17 06:24 Cefazolin Sodium/Dextrose 2 gm (/ Premix) 50 mls @ 200 mls/hr IV ONETIME ONE Stop: 09/14/17 05:59 Last Admin: 09/14/17 20:20 Dose: Not Given Acetaminophen (Ofirmev) Confirm Administered Dose 100 mls @ as directed IV .STK- MED ONE Stop: 09/14/17 06:24 Ketorolac Tromethamine (Toradol) 30 mg IVPUSH Q6H [facility] Stop: 09/15/17 07:11 Last Admin: 09/15/17 06:50 Dose: 30 mg Lidocaine HCl (Xylocaine 1%) 50 ml INJECT .ONCE PRN PRN Reason: Laceration repair Methylergonovine Maleate (Methergine) Confirm Administered Dose 0.2 mg .ROUTE .STK-MED ONE Stop: 09/14/17 06:13 Midazolam HCl (Versed 1 Mg/Ml) Confirm Administered Dose 2 mg .ROUTE .STK-MED ONE Stop: 09/14/17 06:29 Misoprostol (Cytotec) 25 mcg VAG .ONCE [facility] Last Admin: 09/12/17 18:31 Dose: 25 mcg Misoprostol (Cytotec) 25 mcg VAG Q4H PRN PRN Reason: Cervical Ripening Last Admin: 09/12/17 22:43 Dose: 25 mcg Morphine Sulfate (Duramorph Pf) Confirm Administered Dose 1 mg .ROUTE .STK-MED ONE Stop: 09/14/17 05:54 Naloxone HCl (Narcan) 0.1 mg IVPUSH ONETIME PRN PRN Reason: Other Stop: 09/15/17 06:51 Ondansetron HCl (Zofran) 4 mg IVPUSH ONETIME ONE Stop: 09/13/17 03:08 Last Admin: 09/13/17 03:38 Dose: 4 mg Ondansetron HCl (Zofran) Confirm Administered Dose 4 mg .ROUTE .STK-MED ONE Stop: 09/14/17 05:54 Ondansetron HCl (Zofran) 4 mg IV Q4H PRN PRN Reason: Nausea/Vomiting Oxytocin (Pitocin) Confirm Administered Dose 10 unit .ROUTE .STK-MED ONE Stop: 09/14/17 05:54 Oxytocin (Pitocin) Confirm Administered Dose 10 unit .ROUTE .STK-MED ONE Stop: 09/14/17 05:55 Oxytocin (Pitocin) Confirm Administered Dose 10 unit .ROUTE .STK-MED ONE Stop: 09/14/17 05:56 Phenylephrine HCl (Uvaldo-Synephrine) Confirm Administered Dose 10 mg .ROUTE .STK- MED ONE Stop: 09/14/17 06:32 Phenylephrine HCl (Phenylephrine In Ns 100 Mcg/Ml) Confirm Administered Dose 1 mg .ROUTE .STK-MED ONE Stop: 09/14/17 06:33 Propofol (Diprivan 20 Ml) Confirm Administered Dose 200 mg .ROUTE .STK-MED ONE Stop: 09/14/17 05:54 Ropivacaine (Naropin 0.2%) Confirm Administered Dose 20 ml .ROUTE .STK-MED ONE Stop: 09/13/17 09:12 Last Admin: 09/14/17 20:20 Dose: Not Given Sterile Water (Sterile Water For Irrigation) 1,000 ml IRR ASDIRECTED PRN PRN Reason: delivery Terbutaline Sulfate (Brethine) 0.25 mg SUBCUT ASDIRECTED PRN PRN Reason: Tacysystole - My Orders Last 24 Hours: My Active Orders 09/14/17 09:00 Docusate Sodium [Colace] 100 mg PO BID 09/14/17 15:00 Escitalopram [Lexapro] 10 mg PO DAILY 09/15/17 17:00 Ibuprofen [Motrin] 800 mg PO Q8H PRN - Plan Plan:: Patient seen and examined-agree with above
[2017-09-15] MEDS: Escitalopram 10 MG Tab PO SCH (09:09)
[2017-09-15] MEDS: Docusate Sodium 100 MG Cap PO SCH ×2 (09:10→21:31)
--- NOTE | 2017-09-15 12:16 | OR ---
SURGEON: Dominique Gray M.D. DATE OF PROCEDURE: 09/14/2017 PREOPERATIVE DIAGNOSES: 1. A 39 and 3-week intrauterine . 2. Arrest of descent. 3. Gestational diabetes, insulin controlled. POSTOPERATIVE DIAGNOSES: 1. A 39 and 3-week intrauterine . 2. Arrest of descent. 3. Gestational diabetes, insulin controlled. PROCEDURE: Primary low transverse section. ANESTHESIA: Epidural. ESTIMATED BLOOD LOSS: 300 mL. FLUIDS: 600 mL crystalloid in OR. COMPLICATIONS: None. FINDINGS: Term male. scores of 8 at 1 minute and 9 at 5 minutes, weight of 3640 g. Delivery of placenta with a retained portion that was carefully extracted. Uterine atony, received Methergine x1 with IV Pitocin. DISPOSITION: The patient to PACU stable. Infant to nursery. INDICATIONS: Kaylah is a 27-year-old, G3, P0-0-2-0 at 39 and 3 weeks' gestational age, presented on the evening of 09/12/2017 for a scheduled induction of labor due to gestational diabetes with insulin control. The patient received Cytotec ripening, underwent spontaneous rupture of membranes shortly after 02:30 a.m. Clear fluid was noted. Group B beta strep positive. She is already receiving ampicillin prophylaxis. The patient responded nicely to Cytotec. Following morning, she was found to be approximately 3 cm. Pitocin was initiated. She underwent regional anesthesia from epidural, became more comfortable, made slow progress throughout the day as there were intervals of variable decelerations. However, once was able to place an IUPC and amnioinfusion was instituted, the variables did resolve nicely with variability remaining intact. In the late afternoon, the patient began making more progress and progressed from 4 cm to 10 cm in just under 8 hours. She began pushing efforts and pushed for approximately 2 hours; however, there was minimal change in the station of +1. At this point, I had discussion with the patient. She is wishing to proceed with delivery. The risks of the procedure have been discussed and proper consent obtained. PROCEDURE IN DETAIL: The patient was taken to the operating room. She underwent re-bolus of her epidural, was placed in dorsal supine position with a leftward tilt. SCDs to lower extremities. [place] to gravity. She was prepped and draped in the usual sterile fashion. A time-out was performed. Anesthesia was tested and found be adequate. A Pfannenstiel skin incision was created, carried down to the level of rectus fascia which was incised in the midline, lateralized either side. The superior aspect of the fascia was tented upward, dissected sharply and bluntly away from the underlying muscles. In a similar fashion, this was performed in the anterior aspect of the fascia. Rectus muscles were in the midline. Peritoneum was entered. Rectus muscle and peritoneum were lateralized bluntly. A self-retaining retractor now gently placed after palpating position and uterine position. The uterovesical reflection was visualized. Bladder flap was created sharply and bluntly. The bladder was mobilized lower in segment. A low transverse hysterotomy was performed. Uterine cavity was entered with a blunt-end scalpel. Hysterotomy was lateralized bluntly. The 's head was flexed and delivered from the pelvis. The infant's head was delivered followed by anterior shoulder, posterior shoulder, and remaining body without difficulty. The nuchal cord x1 was reduced manually. The infant's oropharynx and nares were bulb suctioned. Cord was clamped x2, and infant handed off to the attending physician, Dr. Panchal. Cord venous and cord blood obtained. Attempted cord arterial blood sampling, but it was not able to be achieved due to the constriction of the vessels. The placenta was now carefully delivered. There is a region of retention that was gently further dissected and removed. This placenta was sent to pathology. The uterine cavity was now cleared of all clot and debris. The hysterotomy was repaired using 0 Vicryl in a continuous locked fashion, followed by a re- imbricating layer area left lateral incision where there is an umbilical artery bleeding, was replicated with two [id number] sutures. Hemostasis thereafter evident. Uterus remained boggy at this juncture. The patient did receive Methergine as well as IV Pitocin. The uterus became more firm thereafter. An imbricating layer of 0 Vicryl was then placed along the hysterotomy. Posterior aspect of the uterus was inspected. No defects or hematomas found to be forming. Regions were well irrigated and suction dried. Uterus was returned to abdominal cavity. Colonic gutters were cleared of all clot and debris, well irrigated, and suction dried. Hysterotomy was again inspected and found to be hemostatic. The self-retaining retractor was now gently removed. Hysterotomy once again inspected and found to be hemostatic. The rectus muscles were reapproximated using 0 Vicryl in inverted mattress suture technique. The anterior aspect of the muscle and posterior aspect of the fascia were closely inspected. Any areas of oozing were cauterized. The skin at the fascia was now reapproximated using 0 Vicryl in continuous running fashion beginning laterally and tied in the midline. The subcutaneous tissue was well irrigated and suction dried. Any areas of oozing were cauterized. The skin edges were reapproximated using 3-0 Vicryl in subcuticular fashion followed by 1/2-inch Steri-Strips. Sponge, instrument, and needle count was correct x2. The patient tolerated the procedure well. Overall, the uterus does remain firm. Hemostasis evident. The patient will go to PACU in stable condition. LEONARD PEDRO /[id number]
[2017-09-15] MEDS: Acetaminophen/oxyCODONE 325-5 MG Tab PO PRN ×2 (13:10→18:44)
[2017-09-15] MEDS ORDERED: Ibuprofen 800 MG Tab PO PRN (17:00)
[2017-09-16] MEDS: Acetaminophen/oxyCODONE 325-5 MG Tab PO PRN (03:36)
--- NOTE | 2017-09-16 08:06 | PCM48HPAN ---
Post Anesthesia Note - EVALUATION WITHIN 48HRS OF ANESTHETIC Vital Signs in Normal Range: Yes Patient Participated in Evaluation: Yes Respiratory Function Stable: Yes Airway Patent: Yes Cardiovascular Function Stable: Yes Hydration Status Stable: Yes Pain Control Satisfactory: Yes Nausea and Vomiting Control Satisfactory: Yes Mental Status Recovered: Yes Resp Rate: 16 Temperature: 37.7 C
--- NOTE | 2017-09-16 08:20 | PCM.PNPP ---
<Lamar Romero - Last Filed: 09/16/17 08:17> - General Info Date of Service: 09/16/17 Functional Status: Reports: Pain Controlled, Tolerating Diet, Ambulating, Urinating - Review of Systems General: Denies: Fever, Weakness, Fatigue Pulmonary: Denies: Shortness of Breath, Pleuritic Chest Pain, Cough Cardiovascular: Denies: Chest Pain, Palpitations, Dyspnea on Exertion Gastrointestinal: Denies: Abdominal Pain Genitourinary: Denies: Dysuria - General Info Date of Service: 09/16/17 - Patient Data Vital Signs - Most Recent: Last Vital Signs Temp 37.7 C 09/16/17 08:06 Pulse 86 09/16/17 04:00 Resp 16 09/16/17 08:06 BP 142/86 H 09/16/17 04:00 Pulse Ox 100 09/16/17 04:00 Weight - Most Recent: 78.018 kg Lab Results - Last 24 Hours: Laboratory Results - last 24 hr 09/15/17 Range/Units 09:24 Fasting Glucose 119 H (74-106) mg/dL Med Orders - Current: Current Medications Al Hydroxide/Mg Hydroxide (Mag-Al Plus) 30 ml PO Q8H PRN PRN Reason: Heartburn Bisacodyl (Dulcolax) 10 mg RECTAL .ONCE PRN PRN Reason: Constipation Carboprost Tromethamine (Hemabate Ds) 250 mcg IM ASDIRECTED PRN PRN Reason: Post Hemorrhage Diphenhydramine HCl (Benadryl) 25 mg IVPUSH Q6H PRN PRN Reason: Itching or Nausea Docusate Sodium (Colace) 100 mg PO BID [facility] Last Admin: 09/15/17 21:31 Dose: 100 mg Emollient Ointment (Lansinoh Hpa) 0 gm TOP ASDIRECTED PRN PRN Reason: Sore Nipples Escitalopram Oxalate (Lexapro) 10 mg PO DAILY [facility] Last Admin: 09/15/17 09:09 Dose: 10 mg Fentanyl (Sublimaze) 25 - 50 mcg IVPUSH Q30M PRN PRN Reason: Pain Tranexamic Acid 1,000 mg/ (Sodium Chloride) 110 mls @ 660 mls/hr IV ONETIME PRN PRN Reason: Bleeding Oxytocin/Sodium Chloride (Oxytocin 30 Unit/500 Ml-Ns) 30 unit in 500 mls @ 2 mls/hr IV TITRATE [facility]; Protocol Last Titration: 09/14/17 02:38 Dose: 10 munits/min, 10 mls/hr Lactated Ringer's (Ringers, Lactated) 1,000 mls @ 125 mls/hr IV ASDIRECTED [facility] Last Admin: 09/14/17 09:22 Dose: 125 mls/hr Ibuprofen (Motrin) 800 mg PO Q8H PRN PRN Reason: mild pain or fever Methylergonovine Maleate (Methergine) 0.2 mg IM ASDIRECTED PRN PRN Reason: Post Hemorrhage Misoprostol (Cytotec) 200 mcg PO .ONCE PRN PRN Reason: Post Hemorrhage Nalbuphine HCl (Nubain) 5 mg IVPUSH Q3H PRN PRN Reason: Pruritis Ondansetron HCl (Zofran) 4 mg IVPUSH Q4H PRN PRN Reason: Nausea/Vomiting Oxycodone/Acetaminophen (Percocet 325-5 Mg) 1 tab PO Q4H PRN PRN Reason: Pain (moderate 4-6) Last Admin: 09/16/17 03:36 Dose: 1 tab Oxycodone/Acetaminophen (Percocet 325-5 Mg) 2 tab PO Q4H PRN PRN Reason: Pain (moderate 4-6) Oxycodone/Acetaminophen (Percocet 325-5 Mg) 1 - 2 tab PO Q6H PRN PRN Reason: Pain Stop: 09/16/17 14:00 Simethicone (Simethicone) 80 mg PO Q4H PRN PRN Reason: Gas Sodium Chloride (Saline Flush) 10 ml FLUSH ASDIRECTED PRN PRN Reason: Keep Vein Open Sodium Chloride (Saline Flush) 2.5 ml FLUSH ASDIRECTED PRN PRN Reason: Keep Vein Open Discontinued Medications Acetaminophen (Tylenol Extra Strength) 1,000 mg PO ONETIME ONE Stop: 09/13/17 22:33 Last Admin: 09/13/17 22:55 Dose: 1,000 mg Bupivacaine HCl (Sensorcaine-Mpf 0.5%) Confirm Administered Dose 10 ml .ROUTE .STK-MED ONE Stop: 09/14/17 03:06 Last Admin: 09/14/17 20:20 Dose: Not Given Bupivacaine HCl (Sensorcaine-Mpf 0.5%) Confirm Administered Dose 20 ml .ROUTE .STK-MED ONE Stop: 09/14/17 05:34 Last Admin: 09/14/17 20:20 Dose: Not Given Butorphanol Tartrate (Stadol) 1 mg IVPUSH Q1H PRN PRN Reason: Abdominal Pain Last Admin: 09/13/17 07:00 Dose: 1 mg Cefazolin Sodium/Dextrose (Ancef) Confirm Administered Dose 2 gm IV .STK-MED ONE Stop: 09/14/17 05:53 Citric Acid/Sodium Citrate (Bicitra Solution) 30 ml PO ONETIME ONE Stop: 09/14/17 05:25 Last Admin: 09/14/17 20:20 Dose: Not Given Diphenhydramine HCl (Benadryl) 25 mg PO ONETIME ONE Stop: 09/13/17 00:13 Last Admin: 09/13/17 01:52 Dose: 25 mg Diphenhydramine HCl (Benadryl) 25 mg IVPUSH Q4H PRN PRN Reason: Itching Stop: 09/15/17 06:51 Lactated Ringer's (Ringers, Lactated) 1,000 mls @ 150 mls/hr IV ASDIRECTED [facility] Last Admin: 09/13/17 18:25 Dose: 150 mls/hr Ampicillin Sodium 2 gm/ Sodium (Chloride) 100 mls @ 200 mls/hr IV ONETIME ONE Stop: 09/12/17 18:55 Last Admin: 09/12/17 19:40 Dose: 200 mls/hr Ampicillin Sodium 1 gm/ Sodium (Chloride) 50 mls @ 100 mls/hr IV Q4H [facility] Last Admin: 09/14/17 03:35 Dose: 100 mls/hr Insulin Human Regular 100 unit (/ Sodium Chloride) 100 mls @ 0.5 mls/hr IV TITRATE [facility]; Protocol Last Titration: 09/14/17 04:46 Dose: 1 unit/hr, 1 mls/hr Dextrose/Sodium Chloride (Dextrose 5%-Normal Saline) 1,000 mls @ 100 mls/hr IV ASDIRECTED [facility] Last Admin: 09/13/17 23:52 Dose: 100 mls/hr Fentanyl/Bupivacaine HCl (Nbmzybrl-Reeyc-Nx 2 Mcg/Ml-0.125%) Confirm Administered Dose 100 mls @ as directed EP .STK-MED ONE Stop: 09/13/17 09:12 Last Admin: 09/14/17 20:20 Dose: Not Given Ropivacaine (Naropin 0.2%) Confirm Administered Dose 100 mls @ as directed .ROUTE .STK-MED ONE Stop: 09/13/17 18:22 Last Admin: 09/14/17 20:20 Dose: Not Given Ropivacaine (Naropin 0.2%) Confirm Administered Dose 100 mls @ as directed .ROUTE .STK-MED ONE Stop: 09/14/17 03:06 Last Admin: 09/14/17 20:20 Dose: Not Given Cefazolin Sodium 2,000 mg/ (Sodium Chloride) 100 mls @ 100 mls/hr IV ONETIME ONE Stop: 09/14/17 06:24 Cefazolin Sodium/Dextrose 2 gm (/ Premix) 50 mls @ 200 mls/hr IV ONETIME ONE Stop: 09/14/17 05:59 Last Admin: 09/14/17 20:20 Dose: Not Given Acetaminophen (Ofirmev) Confirm Administered Dose 100 mls @ as directed IV .STK- MED ONE Stop: 09/14/17 06:24 Ketorolac Tromethamine (Toradol) 30 mg IVPUSH Q6H [facility] Stop: 09/15/17 07:11 Last Admin: 09/15/17 06:50 Dose: 30 mg Lidocaine HCl (Xylocaine 1%) 50 ml INJECT .ONCE PRN PRN Reason: Laceration repair Methylergonovine Maleate (Methergine) Confirm Administered Dose 0.2 mg .ROUTE .STK-MED ONE Stop: 09/14/17 06:13 Midazolam HCl (Versed 1 Mg/Ml) Confirm Administered Dose 2 mg .ROUTE .STK-MED ONE Stop: 09/14/17 06:29 Misoprostol (Cytotec) 25 mcg VAG .ONCE [facility] Last Admin: 09/12/17 18:31 Dose: 25 mcg Misoprostol (Cytotec) 25 mcg VAG Q4H PRN PRN Reason: Cervical Ripening Last Admin: 09/12/17 22:43 Dose: 25 mcg Morphine Sulfate (Duramorph Pf) Confirm Administered Dose 1 mg .ROUTE .STK-MED ONE Stop: 09/14/17 05:54 Naloxone HCl (Narcan) 0.1 mg IVPUSH ONETIME PRN PRN Reason: Other Stop: 09/15/17 06:51 Ondansetron HCl (Zofran) 4 mg IVPUSH ONETIME ONE Stop: 09/13/17 03:08 Last Admin: 09/13/17 03:38 Dose: 4 mg Ondansetron HCl (Zofran) Confirm Administered Dose 4 mg .ROUTE .STK-MED ONE Stop: 09/14/17 05:54 Ondansetron HCl (Zofran) 4 mg IV Q4H PRN PRN Reason: Nausea/Vomiting Oxytocin (Pitocin) Confirm Administered Dose 10 unit .ROUTE .STK-MED ONE Stop: 09/14/17 05:54 Oxytocin (Pitocin) Confirm Administered Dose 10 unit .ROUTE .STK-MED ONE Stop: 09/14/17 05:55 Oxytocin (Pitocin) Confirm Administered Dose 10 unit .ROUTE .STK-MED ONE Stop: 09/14/17 05:56 Phenylephrine HCl (Uvaldo-Synephrine) Confirm Administered Dose 10 mg .ROUTE .STK- MED ONE Stop: 09/14/17 06:32 Phenylephrine HCl (Phenylephrine In Ns 100 Mcg/Ml) Confirm Administered Dose 1 mg .ROUTE .STK-MED ONE Stop: 09/14/17 06:33 Propofol (Diprivan 20 Ml) Confirm Administered Dose 200 mg .ROUTE .STK-MED ONE Stop: 09/14/17 05:54 Ropivacaine (Naropin 0.2%) Confirm Administered Dose 20 ml .ROUTE .STK-MED ONE Stop: 09/13/17 09:12 Last Admin: 09/14/17 20:20 Dose: Not Given Sterile Water (Sterile Water For Irrigation) 1,000 ml IRR ASDIRECTED PRN PRN Reason: delivery Terbutaline Sulfate (Brethine) 0.25 mg SUBCUT ASDIRECTED PRN PRN Reason: Tacysystole - Infant Interaction Disposition, : in Room with Family Infant Interaction: Holding Infant Feeding: Bottle Fed Infant Support Person: - Recovery Exam Fundal Tone: Firm Fundal Level: 1 Fingerbreadths Below Umbilicus Fundal Placement: Midline Lochia Amount: Scant Lochia Color: Rubra/Red Perineum Description: Intact, Minimal Bruising/Swelling Bladder Status: Voiding Urinary Elimination: Voided - Exam General: Alert, Oriented Neck: Supple Lungs: Clear to Auscultation, Normal Respiratory Effort Cardiovascular: Regular Rate, Regular Rhythm GI/Abdominal Exam: Normal Bowel Sounds, Soft, No Distention, No Mass Extremities: Normal Inspection, Normal Capillary Refill, Pedal Edema (2+) Skin: Warm, Dry, Intact - Problem List Review Problem List Initiated/Reviewed/Updated: Yes - Assessment Assessment:: POD#2 s/p PLTCS. Minimal pain and lochia. bottle fed . Discharge home today. - Plan Plan:: Discharge instructions reviewed. Pelvic rest for 6 weeks. Rx for Percocet to use as needed for pain. Instructed patient to call if she develops fever greater than 101 or bleeding through a large pad an hour. No lifting greater than 15 lbs for 6 weeks. F/U with [facility] in 2 and 6 weeks. 2 hr GTT will be done at 6 week PP visit. <Dominique Gray - Last Filed: 09/16/17 08:39> - Patient Data Vital Signs - Most Recent: Last Vital Signs Temp 36.3 C 09/16/17 08:14 Pulse 88 09/16/17 08:14 Resp 18 09/16/17 08:14 BP 130/85 09/16/17 08:14 Pulse Ox 100 09/16/17 08:14 Lab Results - Last 24 Hours: Laboratory Results - last 24 hr 09/15/17 Range/Units 09:24 Fasting Glucose 119 H (74-106) mg/dL Med Orders - Current: Current Medications Al Hydroxide/Mg Hydroxide (Mag-Al Plus) 30 ml PO Q8H PRN PRN Reason: Heartburn Bisacodyl (Dulcolax) 10 mg RECTAL .ONCE PRN PRN Reason: Constipation Carboprost Tromethamine (Hemabate Ds) 250 mcg IM ASDIRECTED PRN PRN Reason: Post Hemorrhage Diphenhydramine HCl (Benadryl) 25 mg IVPUSH Q6H PRN PRN Reason: Itching or Nausea Docusate Sodium (Colace) 100 mg PO BID [facility] Last Admin: 09/15/17 21:31 Dose: 100 mg Emollient Ointment (Lansinoh Hpa) 0 gm TOP ASDIRECTED PRN PRN Reason: Sore Nipples Escitalopram Oxalate (Lexapro) 10 mg PO DAILY [facility] Last Admin: 09/15/17 09:09 Dose: 10 mg Fentanyl (Sublimaze) 25 - 50 mcg IVPUSH Q30M PRN PRN Reason: Pain Tranexamic Acid 1,000 mg/ (Sodium Chloride) 110 mls @ 660 mls/hr IV ONETIME PRN PRN Reason: Bleeding Oxytocin/Sodium Chloride (Oxytocin 30 Unit/500 Ml-Ns) 30 unit in 500 mls @ 2 mls/hr IV TITRATE [facility]; Protocol Last Titration: 09/14/17 02:38 Dose: 10 munits/min, 10 mls/hr Lactated Ringer's (Ringers, Lactated) 1,000 mls @ 125 mls/hr IV ASDIRECTED [facility] Last Admin: 09/14/17 09:22 Dose: 125 mls/hr Ibuprofen (Motrin) 800 mg PO Q8H PRN PRN Reason: mild pain or fever Methylergonovine Maleate (Methergine) 0.2 mg IM ASDIRECTED PRN PRN Reason: Post Hemorrhage Misoprostol (Cytotec) 200 mcg PO .ONCE PRN PRN Reason: Post Hemorrhage Nalbuphine HCl (Nubain) 5 mg IVPUSH Q3H PRN PRN Reason: Pruritis Ondansetron HCl (Zofran) 4 mg IVPUSH Q4H PRN PRN Reason: Nausea/Vomiting Oxycodone/Acetaminophen (Percocet 325-5 Mg) 1 tab PO Q4H PRN PRN Reason: Pain (moderate 4-6) Last Admin: 09/16/17 03:36 Dose: 1 tab Oxycodone/Acetaminophen (Percocet 325-5 Mg) 2 tab PO Q4H PRN PRN Reason: Pain (moderate 4-6) Oxycodone/Acetaminophen (Percocet 325-5 Mg) 1 - 2 tab PO Q6H PRN PRN Reason: Pain Stop: 09/16/17 14:00 Simethicone (Simethicone) 80 mg PO Q4H PRN PRN Reason: Gas Sodium Chloride (Saline Flush) 10 ml FLUSH ASDIRECTED PRN PRN Reason: Keep Vein Open Sodium Chloride (Saline Flush) 2.5 ml FLUSH ASDIRECTED PRN PRN Reason: Keep Vein Open Discontinued Medications Acetaminophen (Tylenol Extra Strength) 1,000 mg PO ONETIME ONE Stop: 09/13/17 22:33 Last Admin: 09/13/17 22:55 Dose: 1,000 mg Bupivacaine HCl (Sensorcaine-Mpf 0.5%) Confirm Administered Dose 10 ml .ROUTE .STK-MED ONE Stop: 09/14/17 03:06 Last Admin: 09/14/17 20:20 Dose: Not Given Bupivacaine HCl (Sensorcaine-Mpf 0.5%) Confirm Administered Dose 20 ml .ROUTE .STK-MED ONE Stop: 09/14/17 05:34 Last Admin: 09/14/17 20:20 Dose: Not Given Butorphanol Tartrate (Stadol) 1 mg IVPUSH Q1H PRN PRN Reason: Abdominal Pain Last Admin: 09/13/17 07:00 Dose: 1 mg Cefazolin Sodium/Dextrose (Ancef) Confirm Administered Dose 2 gm IV .STK-MED ONE Stop: 09/14/17 05:53 Citric Acid/Sodium Citrate (Bicitra Solution) 30 ml PO ONETIME ONE Stop: 09/14/17 05:25 Last Admin: 09/14/17 20:20 Dose: Not Given Diphenhydramine HCl (Benadryl) 25 mg PO ONETIME ONE Stop: 09/13/17 00:13 Last Admin: 09/13/17 01:52 Dose: 25 mg Diphenhydramine HCl (Benadryl) 25 mg IVPUSH Q4H PRN PRN Reason: Itching Stop: 09/15/17 06:51 Lactated Ringer's (Ringers, Lactated) 1,000 mls @ 150 mls/hr IV ASDIRECTED [facility] Last Admin: 09/13/17 18:25 Dose: 150 mls/hr Ampicillin Sodium 2 gm/ Sodium (Chloride) 100 mls @ 200 mls/hr IV ONETIME ONE Stop: 09/12/17 18:55 Last Admin: 09/12/17 19:40 Dose: 200 mls/hr Ampicillin Sodium 1 gm/ Sodium (Chloride) 50 mls @ 100 mls/hr IV Q4H [facility] Last Admin: 09/14/17 03:35 Dose: 100 mls/hr Insulin Human Regular 100 unit (/ Sodium Chloride) 100 mls @ 0.5 mls/hr IV TITRATE [facility]; Protocol Last Titration: 09/14/17 04:46 Dose: 1 unit/hr, 1 mls/hr Dextrose/Sodium Chloride (Dextrose 5%-Normal Saline) 1,000 mls @ 100 mls/hr IV ASDIRECTED [facility] Last Admin: 09/13/17 23:52 Dose: 100 mls/hr Fentanyl/Bupivacaine HCl (Lwswojjl-Vgwpd-Kp 2 Mcg/Ml-0.125%) Confirm Administered Dose 100 mls @ as directed EP .STK-MED ONE Stop: 09/13/17 09:12 Last Admin: 09/14/17 20:20 Dose: Not Given Ropivacaine (Naropin 0.2%) Confirm Administered Dose 100 mls @ as directed .ROUTE .STK-MED ONE Stop: 09/13/17 18:22 Last Admin: 09/14/17 20:20 Dose: Not Given Ropivacaine (Naropin 0.2%) Confirm Administered Dose 100 mls @ as directed .ROUTE .STK-MED ONE Stop: 09/14/17 03:06 Last Admin: 09/14/17 20:20 Dose: Not Given Cefazolin Sodium 2,000 mg/ (Sodium Chloride) 100 mls @ 100 mls/hr IV ONETIME ONE Stop: 09/14/17 06:24 Cefazolin Sodium/Dextrose 2 gm (/ Premix) 50 mls @ 200 mls/hr IV ONETIME ONE Stop: 09/14/17 05:59 Last Admin: 09/14/17 20:20 Dose: Not Given Acetaminophen (Ofirmev) Confirm Administered Dose 100 mls @ as directed IV .STK- MED ONE Stop: 09/14/17 06:24 Ketorolac Tromethamine (Toradol) 30 mg IVPUSH Q6H [facility] Stop: 09/15/17 07:11 Last Admin: 09/15/17 06:50 Dose: 30 mg Lidocaine HCl (Xylocaine 1%) 50 ml INJECT .ONCE PRN PRN Reason: Laceration repair Methylergonovine Maleate (Methergine) Confirm Administered Dose 0.2 mg .ROUTE .STK-MED ONE Stop: 09/14/17 06:13 Midazolam HCl (Versed 1 Mg/Ml) Confirm Administered Dose 2 mg .ROUTE .STK-MED ONE Stop: 09/14/17 06:29 Misoprostol (Cytotec) 25 mcg VAG .ONCE [facility] Last Admin: 09/12/17 18:31 Dose: 25 mcg Misoprostol (Cytotec) 25 mcg VAG Q4H PRN PRN Reason: Cervical Ripening Last Admin: 09/12/17 22:43 Dose: 25 mcg Morphine Sulfate (Duramorph Pf) Confirm Administered Dose 1 mg .ROUTE .STK-MED ONE Stop: 09/14/17 05:54 Naloxone HCl (Narcan) 0.1 mg IVPUSH ONETIME PRN PRN Reason: Other Stop: 09/15/17 06:51 Ondansetron HCl (Zofran) 4 mg IVPUSH ONETIME ONE Stop: 09/13/17 03:08 Last Admin: 09/13/17 03:38 Dose: 4 mg Ondansetron HCl (Zofran) Confirm Administered Dose 4 mg .ROUTE .STK-MED ONE Stop: 09/14/17 05:54 Ondansetron HCl (Zofran) 4 mg IV Q4H PRN PRN Reason: Nausea/Vomiting Oxytocin (Pitocin) Confirm Administered Dose 10 unit .ROUTE .STK-MED ONE Stop: 09/14/17 05:54 Oxytocin (Pitocin) Confirm Administered Dose 10 unit .ROUTE .STK-MED ONE Stop: 09/14/17 05:55 Oxytocin (Pitocin) Confirm Administered Dose 10 unit .ROUTE .STK-MED ONE Stop: 09/14/17 05:56 Phenylephrine HCl (Uvaldo-Synephrine) Confirm Administered Dose 10 mg .ROUTE .STK- MED ONE Stop: 09/14/17 06:32 Phenylephrine HCl (Phenylephrine In Ns 100 Mcg/Ml) Confirm Administered Dose 1 mg .ROUTE .STK-MED ONE Stop: 09/14/17 06:33 Propofol (Diprivan 20 Ml) Confirm Administered Dose 200 mg .ROUTE .STK-MED ONE Stop: 09/14/17 05:54 Ropivacaine (Naropin 0.2%) Confirm Administered Dose 20 ml .ROUTE .STK-MED ONE Stop: 09/13/17 09:12 Last Admin: 09/14/17 20:20 Dose: Not Given Sterile Water (Sterile Water For Irrigation) 1,000 ml IRR ASDIRECTED PRN PRN Reason: delivery Terbutaline Sulfate (Brethine) 0.25 mg SUBCUT ASDIRECTED PRN PRN Reason: Tacysystole - My Orders Last 24 Hours: My Active Orders 09/15/17 17:00 Ibuprofen [Motrin] 800 mg PO Q8H PRN - Plan Plan:: Patient seen and examined, agree wtih above. Continue lexapro for anxiety. Check glucoses randomly and call clinic if fastings greater than 110 or PP greater than 130. May discontinue insulin for now.
[2017-09-16 08:21] VITALS: BP 130/85
[2017-09-16] MEDS: Docusate Sodium 100 MG Cap PO SCH (09:01)
[2017-09-16] MEDS: Escitalopram 10 MG Tab PO SCH (09:01)
== END 2017-09-16 11:00 | disposition home or self-care (01) | DRG 540 ==
LOC: MW.OBCHECK 17:46 → MW.OB 17:48 → MW.OBCHECK 17:50 → MW.OB 17:58 → OBSVTOIN 09-14 06:04 → MW.OB 09-14 12:43
PROVIDERS: ADMIT Obstetrics & Gynecology; ATTEND Obstetrics & Gynecology
PROC: 10D00Z1 Extraction of Products of Conception, Low, Open Approach (ICD-10-PCS; principal; 2017-09-14)
PROC: 3E0P7VZ Introduction of Hormone into Female Reproductive, Via Natural or Artificial Opening (ICD-10-PCS; 2017-09-14)
PROC: 10H07YZ Insertion of Other Device into Products of Conception, Via Natural or Artificial Opening (ICD-10-PCS; 2017-09-14)
DX: O24.424 Gestational diabetes mellitus in childbirth, insulin controlled (principal); O62.1 Secondary uterine inertia; Z3A.39 39 weeks gestation of pregnancy; Z37.0 Single live birth
CPT/HCPCS: 36415; 51702; 59025; 82803; 82947; 82962; 85014; 85018; 85027; 86850; 86900; 86901; A9270-GY; J0290; J0595; J0690; J1885; J2210; J2250; J2274; J2370; J2405; J2590; J2704; J2795; J7030; J7042; J7050; J7120

== ENCOUNTER 2019-06-26 07:57 | Inpatient (IN) | payer BC, OTHER ==
[2019-06-26] MEDS: Lactated Ringers 1,000 ML IV SCH ×2 (08:40→10:00)
[2019-06-26] MEDS ORDERED: ceFAZolin 1 GM in Premix Bag 1 BAG IV ONE (08:46)
[2019-06-26] MEDS ORDERED: Sodium Chloride 0.9% 10 ML SDV IV PRN ×2 (08:46→11:06)
[2019-06-26] MEDS ORDERED: Sodium Chloride 0.9% 2.5 ML Syringe FLUSH PRN ×2 (08:46→11:06)
[2019-06-26] MEDS ORDERED: Citric Acid/Sodium Citrate Solution 30 ML Cup PO ONE (08:46)
[2019-06-26] MEDS ORDERED: Sodium Chloride 0.9% 10 ML Syringe FLUSH PRN ×2 (08:46→11:06)
[2019-06-26] MEDS ORDERED: Propofol 200 MG/20 ML SDV ONE (08:46)
[2019-06-26] MEDS ORDERED: Oxytocin/0.9 % Sodium Chloride 30 UNIT/500 ML BAG IV SCH (09:00)
[2019-06-26] MEDS ORDERED: 50% Dextrose in Water 50 ML Syringe IVPUSH ONE (09:21)
[2019-06-26] MEDS ORDERED: fentaNYL 100 MCG/2 ML SDV IVPUSH PRN (09:25)
[2019-06-26] MEDS ORDERED: Acetaminophen/oxyCODONE 325-5 MG Tab PO PRN ×3 (09:25→11:02)
--- NOTE | 2019-06-26 09:25 | PCM.PREANE ---
Preanesthetic Assessment - Anesthesia/Transfusion/Family Hx Anesthesia History: Prior Anesthesia Without Reaction Other Type of Anesthesia Reaction Comment: "mouthy when waking up" Family History of Anesthesia Reaction: No Transfusion History: No Prior Transfusion(s) Intubation History: Unknown - Review of Systems General: No Symptoms Pulmonary: No Symptoms Cardiovascular: No Symptoms Gastrointestinal: No Symptoms Neurological: No Symptoms Other: Reports: None - Physical Assessment NPO Status Date: 06/25/19 Height: 5 ft 4.17 in Weight: 79.379 kg ASA Class: 2 Mental Status: Alert & Oriented x3 Airway Class: Mallampati = 2 Dentition: Reports: Normal Dentition ROM/Head Extension: Full Lungs: Clear to Auscultation, Normal Respiratory Effort Cardiovascular: Regular Rate, Regular Rhythm - Lab Values: Laboratory Last Values WBC 7.61 K/uL (4.0-11.0) 06/26/19 08:35 RBC 4.64 M/uL (4.30-5.90) 06/26/19 08:35 Hgb 13.4 g/dL (12.0-16.0) 06/26/19 08:35 Hct 40.6 % (36.0-46.0) 06/26/19 08:35 MCV 87.5 fL (80.0-98.0) 06/26/19 08:35 MCH 28.9 pg (27.0-32.0) 06/26/19 08:35 MCHC 33.0 g/dL (31.0-37.0) 06/26/19 08:35 RDW Std Deviation 46.3 fl (28.0-62.0) 06/26/19 08:35 RDW Coeff of Ethel 15 % (11.0-15.0) 06/26/19 08:35 Plt Count 170 K/uL (150-400) 06/26/19 08:35 MPV 11.50 fL (7.40-12.00) 06/26/19 08:35 Nucleated RBC % 0.0 /100WBC 06/26/19 08:35 Nucleated RBCs # 0 K/uL 06/26/19 08:35 POC Glucose 53 mg/dL (60-110) L 06/26/19 09:18 - Allergies Allergies/Adverse Reactions: Allergies Allergy/AdvReac Type Severity Reaction Status Date / Time No Known Allergies Allergy Verified 06/20/19 07:09 - Blood Blood Available: No - Anesthesia Plan Pre-Op Medication Ordered: None - Acknowledgements Anesthesia Type Planned: Spinal Pt an Appropriate Candidate for the Planned Anesthesia: Yes Alternatives and Risks of Anesthesia Discussed w Pt/Guardian: Yes Pt/Guardian Understands and Agrees with Anesthesia Plan: Yes Additional Comments: prev c/section using a labor epidural, gest dm, reduced pm insulin by 50% last night, asymptomatic but hypoglucemic now. will supliment with iv glucose, last office visit had bp 130/94, no rx, being watched. PLAN: spinal with intrathecal duramorph PreAnesthesia Questionnaire HEENT History: Reports: Allergic Rhinitis, Other (See Below) Other HEENT History: wears glasses/contacts Cardiovascular History: Reports: None Respiratory History: Reports: None Gastrointestinal History: Reports: Other (See Below) Other Gastrointestinal History: heartburn with pregnancym hx of ulcerative colitis Genitourinary History: Reports: None PREP MANAGER History: Reports: , Spontaneous Musculoskeletal History: Reports: None Neurological History: Reports: None Psychiatric History: Reports: Anxiety, Depression Endocrine/Metabolic History: Reports: Diabetes, Gestational Hematologic History: Reports: None Immunologic History: Reports: None Oncologic (Cancer) History: Reports: None Dermatologic History: Reports: None - Infectious Disease History Infectious Disease History: Reports: Chicken Pox - Past Surgical History Head Surgeries/Procedures: Reports: None HEENT Surgical History: Reports: Oral Surgery, Other (See Below) Other HEENT Surgeries/Procedures: wisdom teeth extraction Cardiovascular Surgical History: Reports: None Respiratory Surgical History: Reports: None GI Surgical History: Reports: None Female Surgical History: Reports: Section, D&C Endocrine Surgical History: Reports: None Neurological Surgical History: Reports: None Musculoskeletal Surgical History: Reports: None Oncologic Surgical History: Reports: None Dermatological Surgical History: Reports: None - History Comment History Comment: denies etoh - SUBSTANCE USE Smoking Status *Q: Never Smoker - HOME MEDS Home Medications: Home Meds Escitalopram [Lexapro] 10 mg PO DAILY 03/25/16 [History] Pnv No.95/Ferrous Fum/Folic AC [ Vitamins Tablet] 1 tab PO DAILY [History] Acetaminophen [Tylenol] 2 tab PO ASDIRECTED PRN 06/20/19 [History] Aspirin [Children's Aspirin] 81 mg CHEW DAILY 06/20/19 [History] Insulin Glarg,Human.Rec.Analog [Lantus] 20 units SUBCUT BID 06/20/19 [History] - CURRENT (IN HOUSE) MEDS Current Meds: Current Medications Lactated Ringer's (Ringers, Lactated) 1,000 mls @ 500 mls/hr IV BOLUS [facility] Oxytocin/Sodium Chloride (Oxytocin 30 Unit/500 Ml-Ns) 30 unit in 500 mls @ 250 mls/hr IV TITRATE [facility] Sodium Chloride (Saline Flush) 10 ml FLUSH ASDIRECTED PRN PRN Reason: Keep Vein Open Sodium Chloride (Saline Flush) 2.5 ml FLUSH ASDIRECTED PRN PRN Reason: Keep Vein Open Sodium Chloride (Normal Saline) 10 ml IV ASDIRECTED PRN PRN Reason: IV Use Discontinued Medications Citric Acid/Sodium Citrate (Bicitra Solution) 30 ml PO ONETIME ONE Stop: 06/26/19 08:47 Cefazolin Sodium/Dextrose 1 gm (/ Premix) 50 mls @ 100 mls/hr IV ONETIME ONE Stop: 06/26/19 09:15 Propofol (Diprivan 20 Ml) Confirm Administered Dose 200 mg .ROUTE .STK-MED ONE Stop: 06/26/19 08:47
[2019-06-26] MEDS ORDERED: ePHEDrine 50 MG/ML SDV ONE (09:30)
[2019-06-26] MEDS ORDERED: Sodium Chloride 0.9% 40 ML ONE (09:30)
[2019-06-26] MEDS ORDERED: Ondansetron 4 MG/2 ML SDV ONE (09:30)
[2019-06-26] MEDS ORDERED: ceFAZolin 1 GM Vial ONE (09:30)
[2019-06-26] MEDS ORDERED: Oxytocin 10 Units/1 ML SDV ONE (09:30)
[2019-06-26] MEDS ORDERED: Morphine PF 10 MG/10 ML SDV ONE (09:31)
[2019-06-26] MEDS ORDERED: 50% Dextrose in Water 50 ML Syringe ONE (09:37)
[2019-06-26 09:40] LABS: BLOOD UREA NITROGEN,BUN 12 mg/dL (7.0-18.0); CARBON DIOXIDE,CO2 22.4 mmol/L (21.0-32.0); CHLORIDE,CL 107 mmol/L (98-107); GLUCOSE RANDOM 67 mg/dL (74-106); POTASSIUM,K 4.2 mmol/L (3.5-5.1); SODIUM,NA 140 mmol/L (136-145)
[2019-06-26] MEDS ORDERED: Tranexamic Acid 1,000 MG in Sodium Chloride 0.9% 100 ML IV PRN (11:02)
[2019-06-26] MEDS ORDERED: Measles, Mumps & Rubella Vaccine 0.5 ML SDV SUBCUT ONE (11:02)
[2019-06-26] MEDS ORDERED: Methylergonovine 0.2 MG/1 ML Amp IM PRN (11:02)
[2019-06-26] MEDS ORDERED: Bisacodyl 10 MG Supp RECTAL PRN (11:02)
[2019-06-26] MEDS ORDERED: diphenhydrAMINE 50 MG/ML SDV IVPUSH PRN (11:02)
[2019-06-26] MEDS ORDERED: Misoprostol 200 MCG Tab RECTAL PRN (11:02)
[2019-06-26] MEDS ORDERED: Oxytocin 10 Units/1 ML SDV IM PRN (11:02)
[2019-06-26] MEDS ORDERED: Ondansetron 4 MG/2 ML SDV IVPUSH PRN (11:02)
[2019-06-26] MEDS ORDERED: Lanolin 100% Cream 7 GM Tube TOP PRN (11:02)
[2019-06-26] MEDS ORDERED: Labetalol 100 MG/20 ML MDV IVPUSH PRN (11:06)
[2019-06-26] MEDS ORDERED: Calcium Gluconate 10% 1 GM/10 ML SDV IV PRN (11:06)
[2019-06-26] MEDS ORDERED: Magnesium Sulfate/Water 4 GM in Premix Bag 1 BAG IV ONE (11:06)
[2019-06-26] MEDS ORDERED: hydrALAZINE 20 MG/ML SDV IVPUSH PRN (11:06)
[2019-06-26] MEDS ORDERED: Lactated Ringers 1,000 ML IV SCH (11:15)
--- NOTE | 2019-06-26 11:25 | PCM.OPNOTE ---
- General Post-Op/Procedure Note Date of Surgery/Procedure: 06/26/19 Operative Procedure(s): Repeat LTCS Findings: Viable female APGARs 8, 9 weight pending. Delivery intact placenta with accessory lobe Pre Op Diagnosis: 39 week IUP. Previous c section, desires repeat. Preeclampsia. Gestational diabetes Post-Op Diagnosis: Same Anesthesia Technique: Spinal Primary Surgeon: Dominique Gray Fluid Replacement, Intraop: 900 (in OR) EBL in mLs: 600 Complications: none known Condition: Good Free Text/Narrative:: [id number] Dictation
--- NOTE | 2019-06-26 11:37 | PCM.POSTAN ---
POST ANESTHESIA ASSESSMENT - MENTAL STATUS Mental Status: Alert - VITAL SIGNS Vital Signs: Last Vital Signs Temp 37.1 C 06/26/19 11:04 Pulse 76 06/26/19 11:30 Resp 11 L 06/26/19 11:30 BP 145/89 H 06/26/19 11:30 Pulse Ox 98 06/26/19 11:30 - RESPIRATORY Respiratory Status: Respiratory Rate WNL - CARDIOVASCULAR CV Status: Pulse Rate WNL - GASTROINTESTINAL GI Status: No Symptoms Free Text/Narrative:: Nausea resolved with stable BP. - PAIN Pain Score: 0 (Block regressing.) - POST OP HYDRATION Hydration Status: Adequate & Stable - OBSERVATIONS Free Text/Narrative:: Doing well. Anxiety less. Resting quietly.
[2019-06-26] MEDS: Ketorolac 30 MG/ML SDV IVPUSH SCH ×2 (11:42→19:00)
[2019-06-26] MEDS: Nalbuphine 10 MG/1 ML Vial IVPUSH PRN ×2 (11:53→15:17)
[2019-06-26] MEDS: Magnesium Sulfate/Water 20 GM/500 ML BAG IV SCH ×2 (12:37→22:19)
[2019-06-26] MEDS: Simethicone 80 MG Tab.Chew PO SCH ×2 (19:15→19:20)
[2019-06-26] MEDS: Docusate Sodium 100 MG Cap PO SCH (21:03)
[2019-06-26] MEDS ORDERED: Magnesium Sulfate/Water 20 GM/500 ML BAG ONE (21:33)
[2019-06-26] MEDS: Acetaminophen/oxyCODONE 325-5 MG Tab PO PRN (22:27)
[2019-06-27] MEDS: Simethicone 80 MG Tab.Chew PO SCH ×4 (00:07→23:56)
[2019-06-27] MEDS: Ketorolac 30 MG/ML SDV IVPUSH SCH ×3 (00:07→12:00)
[2019-06-27 04:26] LABS: BLOOD UREA NITROGEN,BUN 10 mg/dL (7.0-18.0); CARBON DIOXIDE,CO2 27.4 mmol/L (21.0-32.0); CHLORIDE,CL 104 mmol/L (98-107); GLUCOSE RANDOM 100 mg/dL (74-106); POTASSIUM,K 3.7 mmol/L (3.5-5.1); SODIUM,NA 138 mmol/L (136-145)
--- NOTE | 2019-06-27 07:55 | PCM48HPAN ---
Post Anesthesia Note - EVALUATION WITHIN 48HRS OF ANESTHETIC Vital Signs in Normal Range: Yes Patient Participated in Evaluation: Yes Respiratory Function Stable: Yes Airway Patent: Yes Cardiovascular Function Stable: Yes Hydration Status Stable: Yes Pain Control Satisfactory: Yes Nausea and Vomiting Control Satisfactory: Yes Mental Status Recovered: Yes Vital Signs: Last Vital Signs Temp 35.8 C L 06/27/19 06:00 Pulse 77 06/27/19 07:00 Resp 16 06/27/19 07:00 BP 105/72 06/27/19 07:00 Pulse Ox 97 06/27/19 07:00
[2019-06-27] MEDS: Acetaminophen/oxyCODONE 325-5 MG Tab PO PRN (09:25)
--- NOTE | 2019-06-27 09:47 | OR ---
SURGEON: Dominique Gray M.D. DATE OF PROCEDURE: 06/26/2019 PREOPERATIVE DIAGNOSES: 1. 39-week intrauterine . 2. Previous section, desires repeat. 3. Preeclampsia. 4. Gestational diabetes. POSTOPERATIVE DIAGNOSES: 1. 39-week intrauterine . 2. Previous section, desires repeat. 3. Preeclampsia. 4. Gestational diabetes. PROCEDURE: Repeat low-transverse section. ANESTHESIA: Spinal. ESTIMATED BLOOD LOSS: 600 mL. FLUIDS: 900 mL of crystalloid in OR. COMPLICATION: None known. FINDINGS: Viable female. score 8 at one minute and 9 at five minutes. Delivery of intact placenta with accessory lobe. DISPOSITION: Mom to PACU on magnesium recovery and to nursery. PROCEDURE DETAIL: Kaylah is a 29-year-old, G4, A2, living 1, at 39 weeks' gestation, who presents this morning for a scheduled repeat delivery. Risks of procedure were discussed. Proper consent obtained. The patient has had gestational diabetes, controlled with insulin during the . On initial examination this morning, blood pressures were elevated in the 130s to 140s over 80s to 90s, therefore, PIH labs were drawn. Her CBC and CMP are normal; however, her urine protein creatinine ratio is elevated at 0.8. Therefore, proceeded with delivery and planned magnesium recovery . The patient was taken to the operating room, where she underwent spinal anesthetic, was placed in dorsal supine position with leftward tilt. SCDs to lower extremities. [place] to gravity. Was prepped and draped in the usual sterile fashion. Time-out was performed. She received Ancef 2 g prophylactically. Anesthesia was tested and found to be adequate. Previous Pfannenstiel scar was now excised. Subcutaneous tissue was incised down to the level of rectus fascia, which was incised in midline, lateralized, and dissected sharply and bluntly. Superior aspect of the fascia tented upward, dissected sharply and bluntly away from underlying muscles. In the similar aspect, this was performed in the inferior aspect of the fascia. Rectus muscle was in the midline. Peritoneum was entered. Rectus muscle and peritoneum were now lateralized bluntly. Uterine position and position palpated. Self- retaining retractor was gently placed. Uterovesical reflection was visualized. Bladder flap was created sharply and bluntly. Bladder was mobilized away from lower uterine segment. Low-transverse hysterotomy was now performed. Uterine cavity was entered using blunt end of the scalpel. Amniotomy was performed. Clear fluid was returned. The hysterotomy was lateralized bluntly. The 's head was flexed and delivered from the pelvis. Fundal pressure was applied. The 's head was delivered followed by anterior shoulder, posterior shoulder, and remainder of the body without difficulty. The infant's oropharynx and nares were bulb suctioned. was crying with good tone. After delay, cord was clamped x2 and cut. Infant was handed off to the attending nursery staff. Cord arterial, cord venous, cord blood sampling obtained. The placenta was now delivered including the anterior accessory lobe. After uterus was cleared of all clot and debris, hysterotomy repaired using 0 Vicryl in continuous running locked fashion, followed by re-imbricating layer. Two areas of oozing were replicated with [id number] sutures. Hemostasis was thereafter evident. Posterior aspect of the uterus was inspected. No defects or hematomas were found to be forming. Pelvis appeared normal. Region was well irrigated and suction dried. Uterus was returned to abdominal cavity, was involuting nicely. The colonic gutters were cleared of all clot and debris, well irrigated and suction dried. Hysterotomy was inspected and found to be hemostatic. Areas of serosal oozing were cauterized. Self-retaining retractor was now gently removed. Bladder flap was placed. Hysterotomy was inspected and found to be hemostatic. Peritoneum was reapproximated using 0 Vicryl inverted mattress suture technique. Anterior aspect of the muscle and posterior aspect of the fascia closely inspected, and any areas of oozing were cauterized. The rectus fascia was now reapproximated using 0 Vicryl with continuous running fashion medially and laterally on each side and meeting in the midline. Subcutaneous tissues irrigated. Any areas of oozing were cauterized. Skin edges were reapproximated using 3-0 Vicryl on a Cole needle in subcuticular fashion followed by Steri-Strips. The patient tolerated the procedure well overall. She will go to PACU and will begin magnesium recovery. to nursery. LEONARD / MAYELA /[id number]
--- NOTE | 2019-06-27 10:36 | PCM.PNPP ---
- General Info Date of Service: 06/27/19 Functional Status: Reports: Pain Controlled, Tolerating Diet - Review of Systems General: Reports: Fatigue. Denies: Fever, Weakness Pulmonary: Denies: Shortness of Breath Cardiovascular: Reports: Edema. Denies: Chest Pain, Palpitations, Lightheadedness Gastrointestinal: Denies: Abdominal Pain, Nausea, Vomiting Genitourinary: Denies: Flank Pain Musculoskeletal: Reports: No Symptoms Skin: Reports: No Symptoms Neurological: Reports: No Symptoms Psychiatric: Reports: No Symptoms - General Info Date of Service: 06/27/19 - Patient Data Vital Signs - Most Recent: Last Vital Signs Temp 35.8 C L 06/27/19 06:00 Pulse 77 06/27/19 07:00 Resp 16 06/27/19 07:00 BP 105/72 06/27/19 07:00 Pulse Ox 97 06/27/19 07:00 Weight - Most Recent: 77.201 kg I&O - Last 24 Hours: Intake & Output 06/26/19 06/27/19 06/27/19 22:59 06:59 14:59 Intake Total 500 540 Output Total 1615 Balance 500 -1075 Lab Results - Last 24 Hours: Laboratory Results - last 24 hr 06/26/19 06/26/19 06/26/19 Range/Units 10:31 11:08 11:16 WBC (4.0-11.0) K/uL RBC (4.30-5.90) M/uL Hgb (12.0-16.0) g/dL Hct (36.0-46.0) % MCV (80.0-98.0) fL MCH (27.0-32.0) pg MCHC (31.0-37.0) g/dL RDW Std Deviation (28.0-62.0) fl RDW Coeff of Ethel (11.0-15.0) % Plt Count (150-400) K/uL MPV (7.40-12.00) fL Nucleated RBC % /100WBC Nucleated RBCs # K/uL Cord ABG pH 7.255 (7.18-7.38) Cord ABG Base Excess -5 (-10--2) Cord VBG pH 7.329 (7.25-7.45) Cord VBG Base Excess -5 (-10--2) Sodium (136-145) mmol/L Potassium (3.5-5.1) mmol/L Chloride (98-107) mmol/L Carbon Dioxide (21.0-32.0) mmol/L BUN (7.0-18.0) mg/dL Creatinine (0.6-1.0) mg/dL Est Cr Clr Drug Dosing mL/min Estimated GFR (MDRD) ml/min Glucose (74-106) mg/dL POC Glucose 73 (60-110) mg/dL Calcium (8.5-10.1) mg/dL Magnesium (1.8-2.4) mg/dL Total Bilirubin (0.2-1.0) mg/dL AST (15-37) IU/L ALT (14-63) IU/L Alkaline Phosphatase (46-116) U/L Total Protein (6.4-8.2) g/dL Albumin (3.4-5.0) g/dL Globulin (2.6-4.0) g/dL Albumin/Globulin Ratio (0.9-1.6) Ur Random Creatinine 29.8 mg/dL U Random Total Protein 33.5 H (<11.9) mg/dL Protein/Creatinin Ratio 1.1 06/26/19 06/26/19 06/27/19 Range/Units 16:05 22:05 04:01 WBC 10.28 (4.0-11.0) K/uL RBC 3.96 L (4.30-5.90) M/uL Hgb 11.4 L (12.0-16.0) g/dL Hct 35.2 L (36.0-46.0) % MCV 88.9 (80.0-98.0) fL MCH 28.8 (27.0-32.0) pg MCHC 32.4 (31.0-37.0) g/dL RDW Std Deviation 48.0 (28.0-62.0) fl RDW Coeff of Ethel 15 (11.0-15.0) % Plt Count 171 (150-400) K/uL MPV 10.50 (7.40-12.00) fL Nucleated RBC % 0.0 /100WBC Nucleated RBCs # 0 K/uL Cord ABG pH (7.18-7.38) Cord ABG Base Excess (-10--2) Cord VBG pH (7.25-7.45) Cord VBG Base Excess (-10--2) Sodium (136-145) mmol/L Potassium (3.5-5.1) mmol/L Chloride (98-107) mmol/L Carbon Dioxide (21.0-32.0) mmol/L BUN (7.0-18.0) mg/dL Creatinine (0.6-1.0) mg/dL Est Cr Clr Drug Dosing mL/min Estimated GFR (MDRD) ml/min Glucose (74-106) mg/dL POC Glucose (60-110) mg/dL Calcium (8.5-10.1) mg/dL Magnesium 4.9 H 6.0 H (1.8-2.4) mg/dL Total Bilirubin (0.2-1.0) mg/dL AST (15-37) IU/L ALT (14-63) IU/L Alkaline Phosphatase (46-116) U/L Total Protein (6.4-8.2) g/dL Albumin (3.4-5.0) g/dL Globulin (2.6-4.0) g/dL Albumin/Globulin Ratio (0.9-1.6) Ur Random Creatinine mg/dL U Random Total Protein (<11.9) mg/dL Protein/Creatinin Ratio 03/25/20 Range/Units 04:01 WBC (4.0-11.0) K/uL RBC (4.30-5.90) M/uL Hgb (12.0-16.0) g/dL Hct (36.0-46.0) % MCV (80.0-98.0) fL MCH (27.0-32.0) pg MCHC (31.0-37.0) g/dL RDW Std Deviation (28.0-62.0) fl RDW Coeff of Ethel (11.0-15.0) % Plt Count (150-400) K/uL MPV (7.40-12.00) fL Nucleated RBC % /100WBC Nucleated RBCs # K/uL Cord ABG pH (7.18-7.38) Cord ABG Base Excess (-10--2) Cord VBG pH (7.25-7.45) Cord VBG Base Excess (-10--2) Sodium 138 (136-145) mmol/L Potassium 3.7 (3.5-5.1) mmol/L Chloride 104 (98-107) mmol/L Carbon Dioxide 27.4 (21.0-32.0) mmol/L BUN 10 (7.0-18.0) mg/dL Creatinine 1.0 (0.6-1.0) mg/dL Est Cr Clr Drug Dosing 70.90 mL/min Estimated GFR (MDRD) > 60.0 ml/min Glucose 100 (74-106) mg/dL POC Glucose (60-110) mg/dL Calcium 7.0 L (8.5-10.1) mg/dL Magnesium 6.2 H (1.8-2.4) mg/dL Total Bilirubin 0.1 L (0.2-1.0) mg/dL AST 24 (15-37) IU/L ALT 20 (14-63) IU/L Alkaline Phosphatase 174 H (46-116) U/L Total Protein 5.2 L (6.4-8.2) g/dL Albumin 2.3 L (3.4-5.0) g/dL Globulin 2.9 (2.6-4.0) g/dL Albumin/Globulin Ratio 0.8 L (0.9-1.6) Ur Random Creatinine mg/dL U Random Total Protein (<11.9) mg/dL Protein/Creatinin Ratio Med Orders - Current: Current Medications Bisacodyl (Dulcolax) 10 mg RECTAL ONETIME PRN PRN Reason: Constipation Calcium Gluconate (Calcium Gluconate) 1 gm IV ASDIRECTED PRN PRN Reason: respiratory distress Diphenhydramine HCl (Benadryl) 25 mg IVPUSH Q6H PRN PRN Reason: Itching or Nausea Last Admin: 06/26/19 22:28 Dose: 25 mg Docusate Sodium (Colace) 100 mg PO BID MILIND Last Admin: 06/26/19 21:03 Dose: 100 mg Emollient Ointment (Lansinoh Hpa) 0 gm TOP ASDIRECTED PRN PRN Reason: Sore Nipples Hydralazine HCl (Apresoline) 5 mg IVPUSH Q20M PRN PRN Reason: Hypertension Lactated Ringer's (Ringers, Lactated) 1,000 mls @ 500 mls/hr IV BOLUS MILIND Last Admin: 06/26/19 10:00 Dose: 999 mls/hr Oxytocin/Sodium Chloride (Oxytocin 30 Unit/500 Ml-Ns) 30 unit in 500 mls @ 250 mls/hr IV TITRATE [facility] Tranexamic Acid 1,000 mg/ (Sodium Chloride) 110 mls @ 660 mls/hr IV ONETIME PRN PRN Reason: Bleeding Lactated Ringer's (Ringers, Lactated) 1,000 mls @ 125 mls/hr IV ASDIRECTED [facility] Ibuprofen (Motrin) 800 mg PO Q8H PRN PRN Reason: mild pain or fever Ketorolac Tromethamine (Toradol) 30 mg IVPUSH Q6H [facility] Stop: 06/27/19 11:16 Last Admin: 06/27/19 06:13 Dose: 30 mg Labetalol HCl (Normodyne) 20 mg IVPUSH Q10M PRN; Protocol PRN Reason: Hypertension Methylergonovine Maleate (Methergine) 0.2 mg IM ONETIME PRN PRN Reason: Excessive Vaginal Bleeding Misoprostol (Cytotec) 1,000 mcg RECTAL ONETIME PRN PRN Reason: excessive bleeding Ondansetron HCl (Zofran) 4 mg IVPUSH Q4H PRN PRN Reason: Nausea/Vomiting Oxycodone/Acetaminophen (Percocet 325-5 Mg) 1 tab PO ONETIME PRN PRN Reason: Pain (moderate 4-6) Oxycodone/Acetaminophen (Percocet 325-5 Mg) 1 tab PO Q4H PRN PRN Reason: Pain (moderate 4-6) Oxycodone/Acetaminophen (Percocet 325-5 Mg) 2 tab PO Q4H PRN PRN Reason: Pain (moderate 4-6) Oxycodone/Acetaminophen (Percocet 325-5 Mg) 1 tab PO Q4H PRN PRN Reason: Pain (moderate 4-6) Last Admin: 06/27/19 09:25 Dose: 1 tab Oxytocin (Pitocin) 10 unit IM ASDIRECTED PRN PRN Reason: Excessive Vaginal Bleeding Simethicone (Simethicone) 160 mg PO QID [facility] Last Admin: 06/27/19 06:17 Dose: 160 mg Sodium Chloride (Saline Flush) 10 ml FLUSH ASDIRECTED PRN PRN Reason: Keep Vein Open Sodium Chloride (Saline Flush) 2.5 ml FLUSH ASDIRECTED PRN PRN Reason: Keep Vein Open Sodium Chloride (Normal Saline) 10 ml IV ASDIRECTED PRN PRN Reason: IV Use Sodium Chloride (Saline Flush) 10 ml FLUSH ASDIRECTED PRN PRN Reason: Keep Vein Open Sodium Chloride (Saline Flush) 2.5 ml FLUSH ASDIRECTED PRN PRN Reason: Keep Vein Open Sodium Chloride (Normal Saline) 10 ml IV ASDIRECTED PRN PRN Reason: IV Use Discontinued Medications Cefazolin Sodium (Ancef) Confirm Administered Dose 2 gm .ROUTE .STK-MED ONE Stop: 06/26/19 09:31 Citric Acid/Sodium Citrate (Bicitra Solution) 30 ml PO ONETIME ONE Stop: 06/26/19 08:47 Dextrose/Water (Dextrose 50% In Water) 50 ml IVPUSH ONETIME ONE; Protocol Stop: 06/26/19 09:22 Last Admin: 06/26/19 09:40 Dose: 25 ml Dextrose/Water (Dextrose 50% In Water) Confirm Administered Dose 50 ml .ROUTE .STK-MED ONE Stop: 06/26/19 09:38 Ephedrine Sulfate (Ephedrine Sulfate) Confirm Administered Dose 100 mg .ROUTE .STK-MED ONE Stop: 06/26/19 09:31 Fentanyl (Sublimaze) 50 mcg IVPUSH Q5M PRN PRN Reason: Pain (severe 7-10) Stop: 06/27/19 09:25 Cefazolin Sodium/Dextrose 1 gm (/ Premix) 50 mls @ 100 mls/hr IV ONETIME ONE Stop: 06/26/19 09:15 Sodium Chloride (Normal Saline) Confirm Administered Dose 40 mls @ as directed .ROUTE .STK-MED ONE Stop: 06/26/19 09:31 Acetaminophen (Ofirmev) Confirm Administered Dose 100 mls @ as directed .ROUTE .STK-MED ONE Stop: 06/26/19 09:55 Magnesium Sulfate 4 gm/ Premix 100 mls @ 300 mls/hr IV BOLUS ONE Stop: 06/26/19 11:25 Last Admin: 06/26/19 12:15 Dose: 300 mls/hr Magnesium Sulfate (Magnesium Sulfate In Water Premix) 20 gm in 500 mls @ 50 mls /hr IV ASDIRECTED [facility]; Protocol Last Admin: 06/26/19 22:19 Dose: 2 gm/hr, 50 mls/hr Magnesium Sulfate (Magnesium Sulfate In Water Premix) Confirm Administered Dose 20 gm in 500 mls @ as directed .ROUTE .STK-MED ONE Stop: 06/26/19 21:34 Measles/Mumps/Rubella Vaccine Live (M-M-R Ii Vaccine) 0.5 ml SUBCUT .ONCE ONE Stop: 06/26/19 11:03 Morphine Sulfate (Duramorph Pf) Confirm Administered Dose 10 mg .ROUTE .STK-MED ONE Stop: 06/26/19 09:32 Nalbuphine HCl (Nubain) 2.5 mg IVPUSH Q3H PRN PRN Reason: Pruritis Stop: 06/27/19 09:26 Last Admin: 06/26/19 15:17 Dose: 2.5 mg Ondansetron HCl (Zofran) Confirm Administered Dose 4 mg .ROUTE .STK-MED ONE Stop: 06/26/19 09:31 Oxytocin (Pitocin) Confirm Administered Dose 30 unit .ROUTE .STK-MED ONE Stop: 06/26/19 09:31 Propofol (Diprivan 20 Ml) Confirm Administered Dose 200 mg .ROUTE .STK-MED ONE Stop: 06/26/19 08:47 - Interaction Support Person: - Recovery Exam Fundal Tone: Firm Fundal Level: 2 Fingerbreadths Below Umbilicus Fundal Placement: Midline Lochia Amount: Scant Lochia Color: Rubra/Red Perineum Description: Intact, Minimal Bruising/Swelling Bladder Status: Indwelling Catheter in Place - Exam General: Alert, Oriented Lungs: Normal Respiratory Effort Cardiovascular: Regular Rate, Regular Rhythm GI/Abdominal Exam: Normal Bowel Sounds, Soft Extremities: Pedal Edema (trace). No: Nelida's Sign Skin: Warm, Dry, Intact Wound/Incisions: Healing Well. No: Erythema Neurological: No New Focal Deficit Psy/Mental Status: Alert, Normal Affect, Normal Mood - Problem List & Annotations (1) Status post repeat low transverse section SNOMED Code(s): 213810981, 71462121, 006563421, 943481025, 330760899 Code(s): Z98.891 - HISTORY OF UTERINE SCAR FROM PREVIOUS SURGERY Status: Acute Current Visit: Yes (2) Pre-eclampsia SNOMED Code(s): 154365805 Code(s): O14.90 - UNSPECIFIED PRE-ECLAMPSIA, UNSPECIFIED TRIMESTER Status: Acute Current Visit: Yes (3) Gestational diabetes SNOMED Code(s): 03696072 Code(s): O24.419 - GESTATIONAL DIABETES MELLITUS IN , UNSP CONTROL Status: Acute Current Visit: Yes - Problem List Review Problem List Initiated/Reviewed/Updated: Yes - My Orders Last 24 Hours: My Active Orders 06/26/19 11:02 Patient Status [ADT] Routine Ambulate [RC] PER UNIT ROUTINE May Shower [RC] ASDIRECTED RT Incentive Spirometry [RC] Q2HWA Vital Signs [RC] PER UNIT ROUTINE Acetaminophen/oxyCODONE [Percocet 325-5 MG] 1 tab PO Q4H PRN Acetaminophen/oxyCODONE [Percocet 325-5 MG] 2 tab PO Q4H PRN Ibuprofen [Motrin] 800 mg PO Q8H PRN Lanolin [Lansinoh HPA] See Dose Instructions TOP ASDIRECTED PRN Methylergonovine [Methergine] 0.2 mg IM ONETIME PRN Ondansetron [Zofran] 4 mg IVPUSH Q4H PRN Oxytocin [Pitocin] 10 unit IM ASDIRECTED PRN Tranexamic Acid [Cyklokapron] 1,000 mg Sodium Chloride 0.9% [Normal Saline] 100 ml IV ONETIME bisacodyL [Dulcolax] 10 mg RECTAL ONETIME PRN diphenhydrAMINE [Benadryl] 25 mg IVPUSH Q6H PRN miSOPROStoL [Cytotec] 1,000 mcg RECTAL ONETIME PRN Abdominal Binder [OM.PC] Routine Assess Lochia [WOMSER] Per Unit Routine Assess Uterine Involution [WOMSER] Per Unit Routine Breast Pump [WOMSER] Per Unit Routine Heat Therapy [OM.PC] Routine Ice Therapy [OM.PC] Routine Peripheral IV Discontinue [OM.PC] Routine Sequential Compression Device [OM.PC] Per Unit Routine 06/26/19 11:03 Antiembolic Devices [RC] PER UNIT ROUTINE 06/26/19 11:06 Bedrest [RC] ASDIRECTED Communication Order [RC] PRN Equipment to Bedside [RC] PRN Height and Weight [RC] DAILY Intake and Output [RC] QSHIFT Notify Provider Status Change [RC] ASDIRECTED Calcium Gluconate 1 gm IV ASDIRECTED PRN Labetalol [Normodyne] 20 mg IVPUSH Q10M PRN Sodium Chloride 0.9% [Normal Saline] 10 ml IV ASDIRECTED PRN Sodium Chloride 0.9% [Saline Flush] 10 ml FLUSH ASDIRECTED PRN Sodium Chloride 0.9% [Saline Flush] 2.5 ml FLUSH ASDIRECTED PRN hydrALAZINE [Apresoline] 5 mg IVPUSH Q20M PRN Peripheral IV Insertion Adult [OM.PC] Routine 06/26/19 11:07 Seizure Precautions [OM.PC] Per Unit Routine 06/26/19 11:15 Ketorolac [Toradol] 30 mg IVPUSH Q6H Lactated Ringers [Ringers, Lactated] 1,000 ml IV ASDIRECTED Deep Tendon Reflexes [WOMSER] Q1H 06/26/19 12:00 Simethicone 160 mg PO QID 06/26/19 12:15 Deep Tendon Reflexes [WOMSER] Q1H 06/26/19 13:15 Deep Tendon Reflexes [WOMSER] Q1H 06/26/19 14:15 Deep Tendon Reflexes [WOMSER] Q1H 06/26/19 15:15 Deep Tendon Reflexes [WOMSER] Q1H 06/26/19 16:15 Deep Tendon Reflexes [WOMSER] Q1H 06/26/19 17:15 Deep Tendon Reflexes [WOMSER] Q1H 06/26/19 18:15 Deep Tendon Reflexes [WOMSER] Q1H 06/26/19 19:15 Deep Tendon Reflexes [WOMSER] Q1H 06/26/19 20:15 Deep Tendon Reflexes [WOMSER] Q1H 06/26/19 21:00 Docusate Sodium [Colace] 100 mg PO BID 06/26/19 21:15 Deep Tendon Reflexes [WOMSER] Q1H 06/26/19 22:15 Deep Tendon Reflexes [WOMSER] Q1H 06/26/19 23:15 Deep Tendon Reflexes [WOMSER] Q1H 06/26/19 Dinner Regular Diet [DIET] 06/27/19 00:15 Deep Tendon Reflexes [WOMSER] Q1H 06/27/19 01:15 Deep Tendon Reflexes [WOMSER] Q1H 06/27/19 02:15 Deep Tendon Reflexes [WOMSER] Q1H 06/27/19 03:15 Deep Tendon Reflexes [WOMSER] Q1H 06/27/19 04:15 Deep Tendon Reflexes [WOMSER] Q1H 06/27/19 05:15 Deep Tendon Reflexes [WOMSER] Q1H 06/27/19 06:15 Deep Tendon Reflexes [WOMSER] Q1H 06/27/19 07:15 Deep Tendon Reflexes [WOMSER] Q1H 06/27/19 08:15 Deep Tendon Reflexes [WOMSER] Q1H 06/27/19 09:15 Deep Tendon Reflexes [WOMSER] Q1H 06/27/19 10:01 MAGNESIUM [CHEM] Routine 06/27/19 10:15 Deep Tendon Reflexes [WOMSER] Q1H - Assessment Assessment:: PPD 1 status post repeat c section Preeclampsia Gestational diabetes - Plan Plan:: Doingwell overall, blood pressures are normalizing with good diuresis. Magnesium discontinued. Glucoses have been normal. Will monitor blood pressures today off the magnesium. Continue postop cares.
[2019-06-27] MEDS: Ibuprofen 800 MG Tab PO PRN (19:34)
[2019-06-27] MEDS: Docusate Sodium 100 MG Cap PO SCH ×2 (19:34→23:47)
[2019-06-28] MEDS: Ibuprofen 800 MG Tab PO PRN (04:52)
[2019-06-28] MEDS: Docusate Sodium 100 MG Cap PO SCH (09:24)
--- NOTE | 2019-06-28 11:05 | PCM.PNPP ---
- General Info Date of Service: 06/28/19 Functional Status: Reports: Pain Controlled, Tolerating Diet, Ambulating, Urinating - Review of Systems General: Denies: Fever, Weakness, Fatigue Pulmonary: Denies: Shortness of Breath Cardiovascular: Denies: Chest Pain, Palpitations, Lightheadedness Gastrointestinal: Denies: Abdominal Pain, Constipation, Nausea, Vomiting Genitourinary: Denies: Flank Pain Musculoskeletal: Reports: No Symptoms Skin: Reports: No Symptoms Neurological: Reports: No Symptoms Psychiatric: Reports: No Symptoms - General Info Date of Service: 06/28/19 - Patient Data Vital Signs - Most Recent: Last Vital Signs Temp 36.9 C 06/28/19 08:00 Pulse 83 06/28/19 08:00 Resp 16 06/28/19 08:00 BP 120/90 06/28/19 08:00 Pulse Ox 98 06/28/19 08:00 Weight - Most Recent: 77.111 kg I&O - Last 24 Hours: Intake & Output 06/27/19 06/28/19 06/28/19 22:59 06:59 14:59 Output Total 3700 Balance -3700 Lab Results - Last 24 Hours: Laboratory Results - last 24 hr 06/26/19 Range/Units 08:35 RPR Non-Reac (Non-Reac) Med Orders - Current: Current Medications Bisacodyl (Dulcolax) 10 mg RECTAL ONETIME PRN PRN Reason: Constipation Calcium Gluconate (Calcium Gluconate) 1 gm IV ASDIRECTED PRN PRN Reason: respiratory distress Diphenhydramine HCl (Benadryl) 25 mg IVPUSH Q6H PRN PRN Reason: Itching or Nausea Last Admin: 06/26/19 22:28 Dose: 25 mg Docusate Sodium (Colace) 100 mg PO BID [facility] Last Admin: 06/28/19 09:24 Dose: 100 mg Emollient Ointment (Lansinoh Hpa) 0 gm TOP ASDIRECTED PRN PRN Reason: Sore Nipples Hydralazine HCl (Apresoline) 5 mg IVPUSH Q20M PRN PRN Reason: Hypertension Lactated Ringer's (Ringers, Lactated) 1,000 mls @ 500 mls/hr IV BOLUS [facility] Last Admin: 06/26/19 10:00 Dose: 999 mls/hr Oxytocin/Sodium Chloride (Oxytocin 30 Unit/500 Ml-Ns) 30 unit in 500 mls @ 250 mls/hr IV TITRATE [facility] Tranexamic Acid 1,000 mg/ (Sodium Chloride) 110 mls @ 660 mls/hr IV ONETIME PRN PRN Reason: Bleeding Lactated Ringer's (Ringers, Lactated) 1,000 mls @ 125 mls/hr IV ASDIRECTED [facility] Ibuprofen (Motrin) 800 mg PO Q8H PRN PRN Reason: mild pain or fever Last Admin: 06/28/19 04:52 Dose: 800 mg Labetalol HCl (Normodyne) 20 mg IVPUSH Q10M PRN; Protocol PRN Reason: Hypertension Methylergonovine Maleate (Methergine) 0.2 mg IM ONETIME PRN PRN Reason: Excessive Vaginal Bleeding Misoprostol (Cytotec) 1,000 mcg RECTAL ONETIME PRN PRN Reason: excessive bleeding Ondansetron HCl (Zofran) 4 mg IVPUSH Q4H PRN PRN Reason: Nausea/Vomiting Oxycodone/Acetaminophen (Percocet 325-5 Mg) 1 tab PO ONETIME PRN PRN Reason: Pain (moderate 4-6) Oxycodone/Acetaminophen (Percocet 325-5 Mg) 1 tab PO Q4H PRN PRN Reason: Pain (moderate 4-6) Last Admin: 06/27/19 23:54 Dose: 1 tab Oxycodone/Acetaminophen (Percocet 325-5 Mg) 2 tab PO Q4H PRN PRN Reason: Pain (moderate 4-6) Oxycodone/Acetaminophen (Percocet 325-5 Mg) 1 tab PO Q4H PRN PRN Reason: Pain (moderate 4-6) Last Admin: 06/27/19 09:25 Dose: 1 tab Oxytocin (Pitocin) 10 unit IM ASDIRECTED PRN PRN Reason: Excessive Vaginal Bleeding Simethicone (Simethicone) 160 mg PO QID [facility] Last Admin: 06/27/19 23:56 Dose: 160 mg Sodium Chloride (Saline Flush) 10 ml FLUSH ASDIRECTED PRN PRN Reason: Keep Vein Open Sodium Chloride (Saline Flush) 2.5 ml FLUSH ASDIRECTED PRN PRN Reason: Keep Vein Open Sodium Chloride (Normal Saline) 10 ml IV ASDIRECTED PRN PRN Reason: IV Use Sodium Chloride (Saline Flush) 10 ml FLUSH ASDIRECTED PRN PRN Reason: Keep Vein Open Sodium Chloride (Saline Flush) 2.5 ml FLUSH ASDIRECTED PRN PRN Reason: Keep Vein Open Sodium Chloride (Normal Saline) 10 ml IV ASDIRECTED PRN PRN Reason: IV Use Discontinued Medications Cefazolin Sodium (Ancef) Confirm Administered Dose 2 gm .ROUTE .STK-MED ONE Stop: 06/26/19 09:31 Citric Acid/Sodium Citrate (Bicitra Solution) 30 ml PO ONETIME ONE Stop: 06/26/19 08:47 Dextrose/Water (Dextrose 50% In Water) 50 ml IVPUSH ONETIME ONE; Protocol Stop: 06/26/19 09:22 Last Admin: 06/26/19 09:40 Dose: 25 ml Dextrose/Water (Dextrose 50% In Water) Confirm Administered Dose 50 ml .ROUTE .STK-MED ONE Stop: 06/26/19 09:38 Ephedrine Sulfate (Ephedrine Sulfate) Confirm Administered Dose 100 mg .ROUTE .STK-MED ONE Stop: 06/26/19 09:31 Fentanyl (Sublimaze) 50 mcg IVPUSH Q5M PRN PRN Reason: Pain (severe 7-10) Stop: 06/27/19 09:25 Cefazolin Sodium/Dextrose 1 gm (/ Premix) 50 mls @ 100 mls/hr IV ONETIME ONE Stop: 06/26/19 09:15 Sodium Chloride (Normal Saline) Confirm Administered Dose 40 mls @ as directed .ROUTE .STK-MED ONE Stop: 06/26/19 09:31 Acetaminophen (Ofirmev) Confirm Administered Dose 100 mls @ as directed .ROUTE .STK-MED ONE Stop: 06/26/19 09:55 Magnesium Sulfate 4 gm/ Premix 100 mls @ 300 mls/hr IV BOLUS ONE Stop: 06/26/19 11:25 Last Admin: 06/26/19 12:15 Dose: 300 mls/hr Magnesium Sulfate (Magnesium Sulfate In Water Premix) 20 gm in 500 mls @ 50 mls /hr IV ASDIRECTED MILIND; Protocol Last Admin: 06/26/19 22:19 Dose: 2 gm/hr, 50 mls/hr Magnesium Sulfate (Magnesium Sulfate In Water Premix) Confirm Administered Dose 20 gm in 500 mls @ as directed .ROUTE .STK-MED ONE Stop: 06/26/19 21:34 Ketorolac Tromethamine (Toradol) 30 mg IVPUSH Q6H MILIND Stop: 06/27/19 11:16 Last Admin: 06/27/19 12:00 Dose: Not Given Measles/Mumps/Rubella Vaccine Live (M-M-R Ii Vaccine) 0.5 ml SUBCUT .ONCE ONE Stop: 06/26/19 11:03 Morphine Sulfate (Duramorph Pf) Confirm Administered Dose 10 mg .ROUTE .STK-MED ONE Stop: 06/26/19 09:32 Nalbuphine HCl (Nubain) 2.5 mg IVPUSH Q3H PRN PRN Reason: Pruritis Stop: 06/27/19 09:26 Last Admin: 06/26/19 15:17 Dose: 2.5 mg Ondansetron HCl (Zofran) Confirm Administered Dose 4 mg .ROUTE .STK-MED ONE Stop: 06/26/19 09:31 Oxytocin (Pitocin) Confirm Administered Dose 30 unit .ROUTE .STK-MED ONE Stop: 06/26/19 09:31 Propofol (Diprivan 20 Ml) Confirm Administered Dose 200 mg .ROUTE .STK-MED ONE Stop: 06/26/19 08:47 - Infant Interaction Support Person: - Recovery Exam Fundal Tone: Firm Fundal Level: 2 Fingerbreadths Below Umbilicus Fundal Placement: Midline Lochia Amount: Scant Lochia Color: Rubra/Red Perineum Description: Intact, Minimal Bruising/Swelling Episiotomy/Laceration: None Bladder Status: Nonpalpable, Voiding Urinary Elimination: Voided - Exam General: Alert, Oriented Lungs: Normal Respiratory Effort Cardiovascular: Regular Rate, Regular Rhythm GI/Abdominal Exam: Normal Bowel Sounds, Soft Extremities: Pedal Edema (trace). No: Nelida's Sign Skin: Warm, Dry, Intact Wound/Incisions: Healing Well Neurological: No New Focal Deficit Psy/Mental Status: Alert, Normal Affect, Normal Mood - Problem List & Annotations (1) Status post repeat low transverse section SNOMED Code(s): 787396577, 52575247, 517329372, 053956906, 487200391 Code(s): Z98.891 - HISTORY OF UTERINE SCAR FROM PREVIOUS SURGERY Status: Acute Current Visit: Yes (2) Pre-eclampsia SNOMED Code(s): 543571349 Code(s): O14.90 - UNSPECIFIED PRE-ECLAMPSIA, UNSPECIFIED TRIMESTER Status: Acute Current Visit: Yes (3) Gestational diabetes SNOMED Code(s): 57268124 Code(s): O24.419 - GESTATIONAL DIABETES MELLITUS IN , UNSP CONTROL Status: Acute Current Visit: Yes - Problem List Review Problem List Initiated/Reviewed/Updated: Yes - My Orders Last 24 Hours: My Active Orders 06/27/19 10:15 Deep Tendon Reflexes [WOMSER] Q1H 06/28/19 11:02 Ready for Discharge [RC] PER UNIT ROUTINE - Assessment Assessment:: PPD 2 status post repeat c section Preeclampsia Gestational diabetes - Plan Plan:: Blood pressures remain normal range, patient denies headaches and feels well. Glucoses have been normal to low--but is not eating regularly. She is not taking insulin. She will continue to monitor glucoses at home and call if persistently >130 or <75. Plan 75 gm GTT at PP visit. Check blood pressures at home and call if >140/90. Infection and bleeding warnings reviewed. May discharge to home today and follow up at [facility] 6 weeks, via phone next week and week after due to COVID-19. Patient agrees to plan of care.
[2019-06-28] MEDS ORDERED: Labetalol 100 MG Tab PO ONE (13:57)
[2019-06-28 14:08] VITALS: PULSE 75
[2019-06-28] MEDS ORDERED: Measles, Mumps & Rubella Vaccine 0.5 ML SDV SUBCUT ONE (16:21)
[2019-06-28 18:42] VITALS: BP 123/71
== END 2019-06-28 16:37 | disposition home or self-care (01) | DRG 540 ==
LOC: MW.OB 07:57
PROVIDERS: ADMIT Obstetrics & Gynecology; ATTEND Obstetrics & Gynecology
PROC: 10D00Z1 Extraction of Products of Conception, Low, Open Approach (ICD-10-PCS; principal; 2019-06-26)
DX: O34.211 Maternal care for low transverse scar from previous cesarean delivery (principal); O24.424 Gestational diabetes mellitus in childbirth, insulin controlled; O14.94 Unspecified pre-eclampsia, complicating childbirth; Z3A.39 39 weeks gestation of pregnancy; Z37.0 Single live birth
CPT/HCPCS: 01961; 36415; 59025; 80053; 82570; 82803; 82962; 83735; 84156; 84550; 85027; 86592; 86593; 86850; 86900; 86901; 90471; 90707; A9270-GY; J0690; J1200; J1885; J2270; J2300; J2405; J2590; J2704; J3475; J7120